=== PATIENT | male | born 1970 | race Caucasian/White ===

== ENCOUNTER 2021-12-06 12:37 | Emergency (ER) | payer SELFPAY ==
[~2021-12-06] VITALS: Ht 182.9 cm; Wt 58.9 kg
[2021-12-06] MEDS ORDERED: ACE65ERTAB PO (12:44)
[2021-12-06] MEDS ORDERED: IBUP200C25 PO (12:44)
[2021-12-06] MEDS ORDERED: CLINDAMYCIN 150MG CAPSULE PO ONE (14:45)
[2021-12-06] MEDS ORDERED: CLEO300C2 PO (14:53)
[2021-12-06 15:15] VITALS: BP 192/110
== END 2021-12-06 15:19 | disposition home or self-care (01) ==
LOC: M ED 12:37
DX: K12.2 Cellulitis and abscess of mouth (principal); I10 Essential (primary) hypertension; F17.210 Nicotine dependence, cigarettes, uncomplicated

== ENCOUNTER 2021-12-19 13:10 | Emergency (ER) | payer SELFPAY ==
[~2021-12-19] VITALS: Ht 182.9 cm; Wt 58.4 kg
[~2021-12-19 13:10] MED LIST: ACE65ERTAB PO; CLEO300C2 PO; IBUP200C25 PO
[2021-12-19 17:20] LABS: HEMATOCRIT 45.5 % (42.0-52.0); HEMOGLOBIN 16.4 g/dl (13.5-17.5); MEAN CORPUSCULAR HEMOGLOBIN 37.9 pg (27.0-33.0); MEAN CORPUSCULAR VOLUME 105.1 fl (80.0-96.0); PLATELET COUNT, AUTOMATED 195 10^3/uL (150-450); RED BLOOD COUNT 4.33 10^6/uL (4.30-6.10); WHITE BLOOD COUNT 11.2 10^3/uL (4.0-10.0)
[2021-12-19 17:29] LABS: ALT/SGPT 54 U/L (12-78); BILIRUBIN,TOTAL 0.6 MG/DL (0.2-1.0); BLOOD UREA NITROGEN 3 MG/DL (7-18); C REACTIVE PROTEIN QUANTITATIV 2.02 MG/DL (0.00-0.30); CALCIUM LEVEL 9.2 MG/DL (8.5-10.1); CARBON DIOXIDE LEVEL 26 MEQ/L (21-32); CHLORIDE LEVEL 94 MEQ/L (98-107); CREATININE FOR GFR 0.29 MG/DL (0.70-1.30); GLOMERULAR FILTRATION RATE > 60.0 (>56); GLUCOSE, FASTING 82 MG/DL (70-100); LDH LACTATE DEHYDROGENASE 165 U/L (87-241); POTASSIUM SERUM 3.4 MEQ/L (3.5-5.1); SODIUM LEVEL 128 MEQ/L (136-145)
[2021-12-19] MEDS ORDERED: ISOVUE-370 76% 100ML VIAL As Ordered ONE (17:37)
[2021-12-19 17:52] LABS: ERYTHROCYTE SEDIMENTATION RATE 17 mm/hr (0-20)
[2021-12-19] MEDS ORDERED: NS 1,000 ML IV ONE (18:00)
[2021-12-19 19:32] VITALS: BP 151/96
== END 2021-12-19 19:39 | disposition home or self-care (01) ==
LOC: M ED 13:10
DX: R22.0 Localized swelling, mass and lump, head (principal); R00.0 Tachycardia, unspecified; H92.01 Otalgia, right ear; F17.210 Nicotine dependence, cigarettes, uncomplicated; Z80.9 Family history of malignant neoplasm, unspecified
CPT/HCPCS: 70491; 71046; 80053; 83615; 85027; 85652; 86140; 96360; 99284; Q9967

== ENCOUNTER → 2021-12-25 | Outpatient (REF) | payer SELFPAY | LOC: M LAB REF 17:24 | PROVIDERS: ATTEND Otolaryngology | DX: C02.1 Malignant neoplasm of border of tongue (principal) ==

== ENCOUNTER → 2022-01-02 | Outpatient (CLI) | payer SELFPAY ==
[~2022-01-02] MED LIST changes: +MAGICMW SSP; +OXYC1SOL3 PO
== END ==
LOC: M ONCR 10:15
PROVIDERS: ATTEND General Practice
DX: C02.1 Malignant neoplasm of border of tongue (principal); C77.0 Secondary and unspecified malignant neoplasm of lymph nodes of head, face and neck; F17.210 Nicotine dependence, cigarettes, uncomplicated; K08.9 Disorder of teeth and supporting structures, unspecified; Z59.7 Insufficient social insurance and welfare support; Z80.1 Family history of malignant neoplasm of trachea, bronchus and lung; Z80.8 Family history of malignant neoplasm of other organs or systems
CPT/HCPCS: 31575; G0463

== ENCOUNTER → 2022-01-09 | Outpatient (POV) | payer SELFPAY ==
[~2022-01-09] VITALS: Ht 182.9 cm; Wt 56.8 kg
[~2022-01-09] MED LIST changes: +FENT12DI12 TOP
[2022-01-09 08:25] VITALS: BP 140/93
== END ==
LOC: M IRPOV 08:14
PROVIDERS: ATTEND Radiology Diagnostic Radiology
DX: C02.9 Malignant neoplasm of tongue, unspecified (principal); F17.210 Nicotine dependence, cigarettes, uncomplicated; R63.4 Abnormal weight loss; Z72.89 Other problems related to lifestyle; Z79.1 Long term (current) use of non-steroidal anti-inflammatories (NSAID); Z79.891 Long term (current) use of opiate analgesic; Z79.899 Other long term (current) drug therapy

== ENCOUNTER → 2022-01-12 | Outpatient (CLI) | payer MEDICAID, SELFPAY ==
[~2022-01-12] VITALS: Ht 182.9 cm; Wt 54.7 kg
[2022-01-12 14:41] VITALS: BP 149/113
== END ==
LOC: M PAL 14:23
PROVIDERS: ATTEND Nurse Practitioner Adult Health
DX: C02.9 Malignant neoplasm of tongue, unspecified (principal); C77.0 Secondary and unspecified malignant neoplasm of lymph nodes of head, face and neck; R13.10 Dysphagia, unspecified; F17.210 Nicotine dependence, cigarettes, uncomplicated; G89.3 Neoplasm related pain (acute) (chronic); G47.00 Insomnia, unspecified; F32.A Depression, unspecified; F41.9 Anxiety disorder, unspecified; Z51.5 Encounter for palliative care; Z79.899 Other long term (current) drug therapy; Z80.1 Family history of malignant neoplasm of trachea, bronchus and lung; Z80.8 Family history of malignant neoplasm of other organs or systems; Z79.891 Long term (current) use of opiate analgesic; Z66 Do not resuscitate

== ENCOUNTER → 2022-01-21 | Outpatient (CLI) | payer MEDICAID, SELFPAY | LOC: M LABSMTC 11:38 | PROVIDERS: ATTEND Anesthesiology | DX: Z01.818 Encounter for other preprocedural examination (principal); Z11.52 Encounter for screening for COVID-19 ==

== ENCOUNTER → 2022-01-22 | Outpatient (CLI) | payer MEDICAID, SELFPAY ==
[~2022-01-22] MED LIST changes: +GLUCAGON INJ 1MG VIAL As Ordered ONE; +ISOVUE-300 61% 50ML VIAL As Ordered ONE; +LIDOCAINE 1% MDV 20ML VIAL As Ordered ONE; +MIDAZOLAM INJ 2MG/2ML VIAL (J2250 PER 1MG) As Ordered ONE; +NS 1,000 ML IV SCH; +NYST50SS PO; +ceFAZolin 2 GM/D5W 50 ML IV BAG (J0690 PER 500MG) As Ordered ONE; +ceFAZolin SOD 2 GM in IV 1 EA IV ONE; +diphenhydrAMINE 50MG/ML VIAL (J1200) As Ordered ONE; +fentaNYL 100 MCG/2 ML INJECTION As Ordered ONE
[2022-01-22 16:00] VITALS: BP 161/96
== END ==
LOC: M IRPRO 11:45
PROVIDERS: ATTEND Radiology Diagnostic Radiology
DX: C76.0 Malignant neoplasm of head, face and neck (principal); R13.10 Dysphagia, unspecified; Z79.891 Long term (current) use of opiate analgesic
CPT/HCPCS: 49440; 99152; 99153; C1729; C1769; C1887; C1894; J0690; J1200; J1610; J2250; J3010; Q9967

== ENCOUNTER → 2022-01-23 | Outpatient (CLI) | payer MEDICAID, SELFPAY ==
[~2022-01-23] MED LIST changes: -GLUCAGON INJ 1MG VIAL As Ordered ONE; -ISOVUE-300 61% 50ML VIAL As Ordered ONE; -LIDOCAINE 1% MDV 20ML VIAL As Ordered ONE; -MIDAZOLAM INJ 2MG/2ML VIAL (J2250 PER 1MG) As Ordered ONE; -NS 1,000 ML IV SCH; -ceFAZolin 2 GM/D5W 50 ML IV BAG (J0690 PER 500MG) As Ordered ONE; -ceFAZolin SOD 2 GM in IV 1 EA IV ONE; -diphenhydrAMINE 50MG/ML VIAL (J1200) As Ordered ONE; -fentaNYL 100 MCG/2 ML INJECTION As Ordered ONE
== END ==
LOC: M PAL 15:21
PROVIDERS: ATTEND Nurse Practitioner Adult Health
DX: C02.9 Malignant neoplasm of tongue, unspecified (principal); C77.0 Secondary and unspecified malignant neoplasm of lymph nodes of head, face and neck; G89.3 Neoplasm related pain (acute) (chronic); F32.89 Other specified depressive episodes; F41.9 Anxiety disorder, unspecified; G47.00 Insomnia, unspecified; F17.210 Nicotine dependence, cigarettes, uncomplicated; R63.4 Abnormal weight loss; R68.84 Jaw pain; M54.50 Low back pain, unspecified; K59.00 Constipation, unspecified; R13.10 Dysphagia, unspecified; Z51.5 Encounter for palliative care; Z79.891 Long term (current) use of opiate analgesic; Z66 Do not resuscitate; Z80.1 Family history of malignant neoplasm of trachea, bronchus and lung

== ENCOUNTER → 2022-02-04 | Outpatient (CLI) | payer MEDICAID ==
[~2022-02-04] MED LIST changes: +OMEP-173 PO; +POTA20EL PO
== END ==
LOC: M LABSMTC 10:34
PROVIDERS: ATTEND Anesthesiology
DX: Z01.818 Encounter for other preprocedural examination (principal); Z11.52 Encounter for screening for COVID-19

== ENCOUNTER 2022-02-09 13:34 | Day surgery (SDC) | payer MEDICAID, OTHER ==
[~2022-02-09] VITALS: Ht 182.9 cm; Wt 49.0 kg
[~2022-02-09 13:34] MED LIST changes: +AMPICILLIN SOD/SULBACTAM SOD 3 GM in D5W MINI-BAG PLUS 100 ML IV ONE; +dexameTHASONE 4 MG/ML 1ML VIAL (J1100 PER 1MG) IV ONE
[2022-02-09] MEDS ORDERED: CHLORHEXIDINE GLUCONATE 0.12 % 15ML UDC (PERIDEX ORAL RINSE) As Ordered ONE ×2 (13:36→16:21)
[2022-02-09] MEDS ORDERED: MEPIVACAINE HCL 3 % 1.7 ML DENTAL CARTRIDGE (CARBOCAINE) (J0670) As Ordered ONE ×2 (13:36→14:05)
[2022-02-09] MEDS ORDERED: LIDOCAINE 2% W/ EPINEPHRINE 1.7 ML DENTAL INJ As Ordered ONE (13:37)
[2022-02-09] MEDS ORDERED: propofoL 200 MG/20 ML VIAL As Ordered ONE (13:41)
[2022-02-09] MEDS ORDERED: MIDAZOLAM INJ 2MG/2ML VIAL (J2250 PER 1MG) As Ordered ONE ×2 (13:41→15:27)
[2022-02-09] MEDS ORDERED: fentaNYL 250 MCG/5 ML INJECTION As Ordered ONE (13:41)
[2022-02-09] MEDS ORDERED: ROCURONIUM BROMIDE 50 MG/5 ML VIAL As Ordered ONE (13:41)
[2022-02-09] MEDS ORDERED: LIDOCAINE 2% 100MG/5ML SDV (FOR ANES.) As Ordered ONE (13:41)
[2022-02-09] MEDS ORDERED: ONDANSETRON 4MG 2ML VIAL As Ordered ONE (13:41)
[2022-02-09] MEDS ORDERED: dexameTHASONE 4 MG/ML 1ML VIAL (J1100 PER 1MG) As Ordered ONE (13:42)
[2022-02-09] MEDS ORDERED: SEVOFLURANE INHAL SOLN 250 ML BTL As Ordered ONE (13:50)
[2022-02-09] MEDS ORDERED: LR 1,000 ML IV SCH ×2 (14:00→18:10)
[2022-02-09] MEDS ORDERED: HYDROMORPHONE HCL 0.5 MG/ 0.5 ML SYRINGE (J1170 PER 1) IV STA (14:18)
[2022-02-09] MEDS ORDERED: OXYMETAZOLINE 0.05% NASAL SPRAY (AFRIN) As Ordered ONE (14:46)
[2022-02-09] MEDS ORDERED: LIDOCAINE 2% JELLY 5ML TUBE As Ordered ONE (14:59)
[2022-02-09] MEDS ORDERED: KETAMINE HCL 200 MG/20 ML VIAL As Ordered ONE (15:25)
[2022-02-09] MEDS ORDERED: SUGAMMADEX SODIUM 500 MG/5 ML VIAL (BRIDION) As Ordered ONE (16:11)
[2022-02-09] MEDS ORDERED: ACETAMINOPHEN 1000MG 100ML IV BTL (OFIRMEV) (J0131 PER 10MG) As Ordered ONE (16:17)
[2022-02-09] MEDS ORDERED: ESMOLOL INJ 100MG/10ML VIAL As Ordered ONE (16:18)
[2022-02-09 16:19] LABS: BASO # 0.1 10^3/uL (0.0-0.2); BASO % 0.5 % (0.0-1.0); EOS % 0.1 % (0.0-3.0); HEMATOCRIT 25.4 % (42.0-52.0); HEMOGLOBIN 8.4 g/dl (13.5-17.5); LYMPH # 0.7 10^3/uL (1.5-5.0); LYMPH % 7.7 % (24.0-44.0); MEAN CORPUSCULAR HEMOGLOBIN 34.6 pg (27.0-33.0); MEAN CORPUSCULAR HGB CONC 33.1 g/dl (32.0-36.5); MEAN CORPUSCULAR VOLUME 104.5 fl (80.0-96.0); MONO % 10.2 % (2.0-8.0); NEUTROPHILS # 7.8 10^3/uL (1.5-8.5); NEUTROPHILS % 80.7 % (36.0-66.0); PLATELET COUNT, AUTOMATED 321 10^3/uL (150-450); RED BLOOD COUNT 2.43 10^6/uL (4.30-6.10); WHITE BLOOD COUNT 9.7 10^3/uL (4.0-10.0)
[2022-02-09] MEDS ORDERED: BUPIVACAINE LIPOSOME/PF 1.3% 20ML VIAL (13.3MG/ML)(EXPAREL) As Ordered ONE (16:24)
[2022-02-09] MEDS ORDERED: HYDROmorphone HCL 2MG/ML 1ML VIAL As Ordered ONE (16:44)
[2022-02-09] MEDS: THROMBIN SOLN 5,000 UNITS VIAL As Ordered ONE ×2 (17:30→17:45)
[2022-02-09] MEDS ORDERED: fentaNYL 100 MCG/2 ML INJECTION IV PRN (18:10)
[2022-02-09] MEDS ORDERED: HYDROMORPHONE HCL 0.5 MG/ 0.5 ML SYRINGE (J1170 PER 1) IV PRN (18:10)
[2022-02-09] MEDS ORDERED: ONDANSETRON 4MG 2ML VIAL IV PRN (18:10)
[2022-02-09] MEDS ORDERED: oxyCODONE 5MG TAB PO PRN (18:10)
[2022-02-09 20:30] VITALS: BP 110/64
== END 2022-02-09 20:59 | disposition home or self-care (01) ==
LOC: M SDC 13:34
PROVIDERS: ATTEND Dentist
DX: K02.9 Dental caries, unspecified (principal); C02.9 Malignant neoplasm of tongue, unspecified; J44.9 Chronic obstructive pulmonary disease, unspecified; F17.210 Nicotine dependence, cigarettes, uncomplicated; Z79.891 Long term (current) use of opiate analgesic
CPT/HCPCS: 85025; 88300; C9290; D7210; D7310; D9223; J0131; J0295; J0670; J1100; J1170; J2250; J2405; J3010

== ENCOUNTER → 2022-02-13 | Outpatient (POV) | payer MEDICAID, OTHER ==
[~2022-02-13] MED LIST changes: +AMOX250REC; -AMPICILLIN SOD/SULBACTAM SOD 3 GM in D5W MINI-BAG PLUS 100 ML IV ONE; +DEXA4TA PO; +FENT12DI8 TD; +FENT1DIS14 TD; +OMEP-173; +ONDA4TAB6 PO; +OXYC100C5 PO; +PERI12LIQ; +PROC10TA5 PO; -dexameTHASONE 4 MG/ML 1ML VIAL (J1100 PER 1MG) IV ONE
== END ==
LOC: M IRPOV 13:10
PROVIDERS: ATTEND Radiology Diagnostic Radiology
DX: Z01.89 Encounter for other specified special examinations (principal)

== ENCOUNTER → 2022-02-20 | Outpatient (CLI) | payer OTHER ==
[~2022-02-20] VITALS: Ht 165.1 cm; Wt 51.0 kg
[2022-02-20 15:30] VITALS: BP 135/93
== END ==
LOC: M PAL 15:15
PROVIDERS: ATTEND Nurse Practitioner Adult Health
DX: C02.9 Malignant neoplasm of tongue, unspecified (principal); F17.210 Nicotine dependence, cigarettes, uncomplicated; H92.03 Otalgia, bilateral; M54.50 Low back pain, unspecified; M54.2 Cervicalgia; R13.10 Dysphagia, unspecified; Z66 Do not resuscitate; Z80.1 Family history of malignant neoplasm of trachea, bronchus and lung; Z51.5 Encounter for palliative care; G89.3 Neoplasm related pain (acute) (chronic); Z79.891 Long term (current) use of opiate analgesic

== ENCOUNTER → 2022-03-08 | Outpatient (CLI) | payer OTHER ==
[~2022-03-08] MED LIST changes: +ONDA-84 PO
== END ==
LOC: M ONCR 13:05
PROVIDERS: ATTEND General Practice
DX: C02.9 Malignant neoplasm of tongue, unspecified (principal); C77.9 Secondary and unspecified malignant neoplasm of lymph node, unspecified; K06.8 Other specified disorders of gingiva and edentulous alveolar ridge

== ENCOUNTER 2022-03-13 10:51 | Emergency (ER) | payer OTHER ==
[~2022-03-13] VITALS: Ht 152.4 cm; Wt 45.5 kg
[2022-03-13 11:59] LABS: HEMATOCRIT 28.6 % (42.0-52.0); HEMOGLOBIN 9.3 g/dl (13.5-17.5); MEAN CORPUSCULAR HEMOGLOBIN 30.6 pg (27.0-33.0); MEAN CORPUSCULAR HGB CONC 32.5 g/dl (32.0-36.5); MEAN CORPUSCULAR VOLUME 94.1 fl (80.0-96.0); PLATELET COUNT, AUTOMATED 100 10^3/uL (150-450); RED BLOOD COUNT 3.04 10^6/uL (4.30-6.10); WHITE BLOOD COUNT 1.1 10^3/uL (4.0-10.0)
[2022-03-13 12:13] LABS: BILIRUBIN,DIRECT 0.2 MG/DL (<0.4)
[2022-03-13 12:14] LABS: ALBUMIN 2.5 G/DL (3.2-5.2); ALKALINE PHOSPHATASE 80 U/L (46-116); ALT/SGPT 20 U/L (7.0-40); AST/SGOT 18 U/L (<34); BILIRUBIN,TOTAL 0.6 MG/DL (0.3-1.2); BLOOD UREA NITROGEN 15 MG/DL (9-23); CALCIUM LEVEL 7.9 MG/DL (8.5-10.1); CARBON DIOXIDE LEVEL 29 MMOL/L (20-31); CHLORIDE LEVEL 101 MMOL/L (98-107); CREATININE FOR GFR 0.49 MG/DL (0.70-1.30); GLOMERULAR FILTRATION RATE > 60.0 (>56); GLUCOSE, FASTING 115 MG/DL (60-100); POTASSIUM SERUM 3.1 MMOL/L (3.5-5.1); SODIUM LEVEL 136 MMOL/L (136-145); TOTAL PROTEIN 5.3 G/DL (5.7-8.2)
[2022-03-13 12:58] LABS: BASOPHILS 1 % (0-1); LYMPHOCYTES 58 % (16-44); MONOCYTES 2 % (0-5); NEUTROPHILS 32 % (28-66)
[2022-03-13 12:59] LABS: HYPOCHROMASIA 3+; PLATELET ESTIMATE MARKED DECREASE (NORMAL)
[2022-03-13] MEDS ORDERED: METAL LOCK LOOP XX ONE ×2 (13:00→13:46)
[2022-03-13] MEDS ORDERED: NS 1,000 ML IV ONE (15:55)
[2022-03-13] MEDS ORDERED: ONDANSETRON 4MG 2ML VIAL IV ONE (15:55)
[2022-03-13] MEDS ORDERED: POTASSIUM CHL PWD 20 MEQ PACKET PEG ONE (15:55)
[2022-03-13] MEDS ORDERED: ONDA4TAB6 PO (16:00)
[2022-03-13 18:00] VITALS: BP 158/83
== END 2022-03-13 18:12 | disposition home or self-care (01) ==
LOC: EDBD 10:51 → M ED 10:51
DX: R11.2 Nausea with vomiting, unspecified (principal); T45.1X5A Adverse effect of antineoplastic and immunosuppressive drugs, initial encounter; D61.810 Antineoplastic chemotherapy induced pancytopenia; E87.6 Hypokalemia; C02.9 Malignant neoplasm of tongue, unspecified; Z93.1 Gastrostomy status; Z95.828 Presence of other vascular implants and grafts; Z80.1 Family history of malignant neoplasm of trachea, bronchus and lung; Z82.49 Family history of ischemic heart disease and other diseases of the circulatory system; Z79.899 Other long term (current) drug therapy
CPT/HCPCS: 74021; 80048; 80076; 85025; 96361; 96374; 99285; J2405

== ENCOUNTER → 2022-03-22 | Outpatient (CLI) | payer OTHER ==
[~2022-03-22] VITALS: Ht 182.9 cm; Wt 50.1 kg
[~2022-03-22] MED LIST changes: +LORA2CON5 PEG; +OXYC100C5 PEG
[2022-03-22 09:43] VITALS: BP 107/82
== END ==
LOC: M PAL 09:35
PROVIDERS: ATTEND Nurse Practitioner Adult Health
DX: C02.9 Malignant neoplasm of tongue, unspecified (principal); F17.210 Nicotine dependence, cigarettes, uncomplicated; G89.3 Neoplasm related pain (acute) (chronic); Z51.5 Encounter for palliative care; Z92.21 Personal history of antineoplastic chemotherapy; Z66 Do not resuscitate; Z80.1 Family history of malignant neoplasm of trachea, bronchus and lung; G47.00 Insomnia, unspecified; L89.159 Pressure ulcer of sacral region, unspecified stage; Z98.818 Other dental procedure status; Z79.891 Long term (current) use of opiate analgesic; Z79.899 Other long term (current) drug therapy

== ENCOUNTER → 2022-04-05 | Outpatient (CLI) | payer OTHER ==
[~2022-04-05] MED LIST changes: +NYST-38 PO; -NYST50SS PO
== END ==
LOC: M PAL 07:39
PROVIDERS: ATTEND Nurse Practitioner Family
DX: C02.9 Malignant neoplasm of tongue, unspecified (principal); G89.3 Neoplasm related pain (acute) (chronic); L89.159 Pressure ulcer of sacral region, unspecified stage; R11.2 Nausea with vomiting, unspecified; R64 Cachexia; Z51.5 Encounter for palliative care; Z66 Do not resuscitate; Z92.21 Personal history of antineoplastic chemotherapy; Z80.1 Family history of malignant neoplasm of trachea, bronchus and lung; Z79.891 Long term (current) use of opiate analgesic; Z79.899 Other long term (current) drug therapy; F17.210 Nicotine dependence, cigarettes, uncomplicated

== ENCOUNTER → 2022-04-10 | Outpatient (CLI) | payer OTHER | LOC: M ONCR 14:08 | PROVIDERS: ATTEND General Practice | DX: C02.0 Malignant neoplasm of dorsal surface of tongue (principal); F17.210 Nicotine dependence, cigarettes, uncomplicated; Z79.52 Long term (current) use of systemic steroids; Z79.891 Long term (current) use of opiate analgesic; Z79.899 Other long term (current) drug therapy; Z92.21 Personal history of antineoplastic chemotherapy ==

== ENCOUNTER → 2022-04-17 | Outpatient (CLI) | payer OTHER ==
[~2022-04-17] VITALS: Ht 177.8 cm; Wt 50.3 kg
[~2022-04-17] MED LIST changes: -OMEP-173
[2022-04-17 11:40] VITALS: BP 108/72
== END ==
LOC: M PAL 07:09
PROVIDERS: ATTEND Nurse Practitioner Adult Health
DX: C02.9 Malignant neoplasm of tongue, unspecified (principal); G89.3 Neoplasm related pain (acute) (chronic); R64 Cachexia; R11.2 Nausea with vomiting, unspecified; F32.A Depression, unspecified; F41.9 Anxiety disorder, unspecified; L89.159 Pressure ulcer of sacral region, unspecified stage; Z51.5 Encounter for palliative care; Z66 Do not resuscitate; Z92.21 Personal history of antineoplastic chemotherapy; F17.210 Nicotine dependence, cigarettes, uncomplicated; Z79.891 Long term (current) use of opiate analgesic; Z79.899 Other long term (current) drug therapy

== ENCOUNTER → 2022-04-23 | Outpatient (CLI) | payer OTHER ==
[~2022-04-23] MED LIST changes: +ISOVUE-370 76% 100ML VIAL As Ordered ONE
== END ==
LOC: M RAD 08:20
PROVIDERS: ATTEND General Practice
DX: C02.0 Malignant neoplasm of dorsal surface of tongue (principal)

== ENCOUNTER → 2022-05-08 | Outpatient (CLI) | payer OTHER ==
[~2022-05-08] VITALS: Ht 182.9 cm; Wt 53.8 kg
[~2022-05-08] MED LIST changes: -ISOVUE-370 76% 100ML VIAL As Ordered ONE; +LIDO15SO4 PO
[2022-05-08 14:05] VITALS: BP 128/79
== END ==
LOC: M PAL 11:28
PROVIDERS: ATTEND Nurse Practitioner Adult Health
DX: C02.9 Malignant neoplasm of tongue, unspecified (principal); G89.3 Neoplasm related pain (acute) (chronic); Z51.5 Encounter for palliative care; R64 Cachexia; F41.9 Anxiety disorder, unspecified; F32.A Depression, unspecified; Z66 Do not resuscitate; Z92.21 Personal history of antineoplastic chemotherapy; F17.210 Nicotine dependence, cigarettes, uncomplicated; Z79.891 Long term (current) use of opiate analgesic; Z79.899 Other long term (current) drug therapy; L89.151 Pressure ulcer of sacral region, stage 1; Z93.1 Gastrostomy status; R11.2 Nausea with vomiting, unspecified

== ENCOUNTER → 2022-05-08 | Outpatient (RCR) | payer OTHER ==
[~2022-05-08] MED LIST changes: -LIDO15SO4 PO
== END ==
LOC: M ONCR 04-18 14:07
PROVIDERS: ATTEND General Practice
DX: C02.0 Malignant neoplasm of dorsal surface of tongue (principal)

== ENCOUNTER → 2022-05-29 | Outpatient (CLI) | payer OTHER ==
[~2022-05-29] VITALS: Ht 182.9 cm; Wt 51.3 kg
[~2022-05-29] MED LIST changes: +LIDO15SO4 PO; +MUCI1LIQ3 PO
[2022-05-29 10:15] VITALS: BP 125/78
== END ==
LOC: M PAL 10:05
PROVIDERS: ATTEND Nurse Practitioner Adult Health
DX: C01 Malignant neoplasm of base of tongue (principal); Z51.5 Encounter for palliative care; Z92.21 Personal history of antineoplastic chemotherapy; Z92.3 Personal history of irradiation; F17.210 Nicotine dependence, cigarettes, uncomplicated; R11.2 Nausea with vomiting, unspecified; F32.A Depression, unspecified; F41.9 Anxiety disorder, unspecified; R64 Cachexia; Z79.891 Long term (current) use of opiate analgesic; Z79.899 Other long term (current) drug therapy

== ENCOUNTER → 2022-06-05 | Outpatient (RCR) | payer OTHER | LOC: M ONCR 05-09 11:28 | PROVIDERS: ATTEND General Practice | DX: C02.0 Malignant neoplasm of dorsal surface of tongue (principal) ==

== ENCOUNTER → 2022-06-19 | Outpatient (CLI) | payer OTHER ==
[~2022-06-19] VITALS: Ht 182.9 cm; Wt 47.3 kg
[2022-06-19 10:39] VITALS: BP 111/75
== END ==
LOC: M PAL 10:32
PROVIDERS: ATTEND Nurse Practitioner Adult Health
DX: C01 Malignant neoplasm of base of tongue (principal); F17.210 Nicotine dependence, cigarettes, uncomplicated; R11.2 Nausea with vomiting, unspecified; F32.A Depression, unspecified; F41.9 Anxiety disorder, unspecified; R64 Cachexia; Z92.21 Personal history of antineoplastic chemotherapy; Z51.5 Encounter for palliative care; Z92.3 Personal history of irradiation; Z79.891 Long term (current) use of opiate analgesic; Z79.899 Other long term (current) drug therapy; Z80.1 Family history of malignant neoplasm of trachea, bronchus and lung

== ENCOUNTER 2022-06-25 10:12 | Outpatient (RCR) | payer OTHER ==
[2022-07-04] MEDS ORDERED: NYST-38 PO (13:23)
== END 2022-07-06 ==
LOC: M ONCR 10:12
PROVIDERS: ATTEND General Practice
DX: C02.0 Malignant neoplasm of dorsal surface of tongue (principal)

== ENCOUNTER → 2022-07-04 | Outpatient (CLI) | payer OTHER ==
[~2022-07-04] VITALS: Ht 182.9 cm; Wt 50.2 kg
[2022-07-04 10:51] VITALS: BP 115/84
== END ==
LOC: M PAL 10:46
PROVIDERS: ATTEND Nurse Practitioner Adult Health
DX: C01 Malignant neoplasm of base of tongue (principal); F41.9 Anxiety disorder, unspecified; F17.210 Nicotine dependence, cigarettes, uncomplicated; G89.29 Other chronic pain; M54.50 Low back pain, unspecified; M54.2 Cervicalgia; R11.2 Nausea with vomiting, unspecified; R64 Cachexia; Z92.21 Personal history of antineoplastic chemotherapy; Z51.5 Encounter for palliative care; Z92.3 Personal history of irradiation; Z79.891 Long term (current) use of opiate analgesic; Z79.899 Other long term (current) drug therapy; Z80.1 Family history of malignant neoplasm of trachea, bronchus and lung

== ENCOUNTER → 2022-07-10 | Outpatient (CLI) | payer OTHER | LOC: M ONCR 10:28 | PROVIDERS: ATTEND General Practice | DX: K13.79 Other lesions of oral mucosa (principal); L98.9 Disorder of the skin and subcutaneous tissue, unspecified; R22.43 Localized swelling, mass and lump, lower limb, bilateral; R68.2 Dry mouth, unspecified ==

== ENCOUNTER → 2022-07-11 | Outpatient (CLI) | payer OTHER | LOC: M WHC 07:12 | PROVIDERS: ATTEND General Practice | DX: C02.0 Malignant neoplasm of dorsal surface of tongue (principal) ==

== ENCOUNTER → 2022-07-31 | Outpatient (CLI) | payer OTHER ==
[~2022-07-31] VITALS: Ht 182.9 cm; Wt 53.6 kg
[~2022-07-31] MED LIST changes: +LIDO15SO PO; -LIDO15SO4 PO
[2022-07-31 13:02] VITALS: BP 130/83
== END ==
LOC: M PAL 12:53
PROVIDERS: ATTEND Nurse Practitioner Adult Health
DX: C01 Malignant neoplasm of base of tongue (principal); Z51.5 Encounter for palliative care; G89.3 Neoplasm related pain (acute) (chronic); K59.00 Constipation, unspecified; R64 Cachexia; F17.210 Nicotine dependence, cigarettes, uncomplicated; Z92.21 Personal history of antineoplastic chemotherapy; Z92.3 Personal history of irradiation; Z79.891 Long term (current) use of opiate analgesic; Z79.899 Other long term (current) drug therapy; Z80.1 Family history of malignant neoplasm of trachea, bronchus and lung

== ENCOUNTER → 2022-08-23 | Outpatient (CLI) | payer OTHER ==
[~2022-08-23] MED LIST changes: +MAGN400T2 PO
== END ==
LOC: M ONCR 14:56
PROVIDERS: ATTEND General Practice
DX: C02.0 Malignant neoplasm of dorsal surface of tongue (principal); R22.0 Localized swelling, mass and lump, head; F17.210 Nicotine dependence, cigarettes, uncomplicated; Z72.89 Other problems related to lifestyle; Z79.891 Long term (current) use of opiate analgesic; Z79.899 Other long term (current) drug therapy; Z92.3 Personal history of irradiation

== ENCOUNTER → 2022-08-30 | Outpatient (CLI) | payer OTHER | LOC: M ONCR 12:44 | PROVIDERS: ATTEND General Practice | DX: I89.0 Lymphedema, not elsewhere classified (principal) ==

== ENCOUNTER → 2022-08-30 | Outpatient (CLI) | payer OTHER ==
[~2022-08-30] VITALS: Ht 182.9 cm; Wt 52.0 kg
[2022-08-30 12:49] VITALS: BP 142/94
== END ==
LOC: M PAL 13:01
PROVIDERS: ATTEND Nurse Practitioner Adult Health
DX: C02.9 Malignant neoplasm of tongue, unspecified (principal); Z92.21 Personal history of antineoplastic chemotherapy; Z92.3 Personal history of irradiation; Z51.5 Encounter for palliative care; Z93.1 Gastrostomy status; G89.3 Neoplasm related pain (acute) (chronic); R64 Cachexia; F41.8 Other specified anxiety disorders; K59.00 Constipation, unspecified; F17.210 Nicotine dependence, cigarettes, uncomplicated; I89.0 Lymphedema, not elsewhere classified; Z66 Do not resuscitate; Z80.1 Family history of malignant neoplasm of trachea, bronchus and lung; Z80.8 Family history of malignant neoplasm of other organs or systems

== ENCOUNTER → 2022-09-25 | Outpatient (CLI) | payer OTHER ==
[~2022-09-25] MED LIST changes: +AMIT50TA PO
== END ==
LOC: M ONCR 11:03
PROVIDERS: ATTEND General Practice
DX: C02.0 Malignant neoplasm of dorsal surface of tongue (principal); D38.1 Neoplasm of uncertain behavior of trachea, bronchus and lung; F17.210 Nicotine dependence, cigarettes, uncomplicated; Z71.2 Person consulting for explanation of examination or test findings; Z72.89 Other problems related to lifestyle; Z79.891 Long term (current) use of opiate analgesic; Z79.899 Other long term (current) drug therapy; Z92.21 Personal history of antineoplastic chemotherapy; Z92.3 Personal history of irradiation; Z93.1 Gastrostomy status
CPT/HCPCS: 31575; G0463

== ENCOUNTER → 2022-10-15 | Outpatient (CLI) | payer OTHER ==
[2022-10-16 16:38] LABS: INR 0.91; PROTHROMBIN TIME 12.5 SECONDS (12.5-14.5)
== END ==
LOC: M ONCR 09:58
PROVIDERS: ATTEND General Practice
DX: C02.0 Malignant neoplasm of dorsal surface of tongue (principal); L98.8 Other specified disorders of the skin and subcutaneous tissue

== ENCOUNTER 2022-10-19 12:41 | Inpatient (IN) | payer OTHER ==
[~2022-10-19] VITALS: Ht 182.9 cm; Wt 55.3 kg
[2022-10-19] VITALS (10 sets, daily range): BP systolic 102–155; BP diastolic 70–87; TEMP 97.1–98; O2SAT 96–100
[~2022-10-19 12:41] MED LIST changes: -HOME MED LIST COMPLETE! XX SCH; -LIDOCAINE 1% MDV 20ML VIAL As Ordered ONE; -MIDAZOLAM INJ 2MG/2ML VIAL As Ordered ONE; -NYST-38 SS; -[UNRECOGNIZED DRUG - CODE] PO; -fentaNYL 100 MCG/2 ML INJECTION As Ordered ONE; -flumazeniL 0.5MG/5ML VIAL As Ordered ONE; -oxyCODONE 5MG TAB As Ordered ONE; -oxyCODONE 5MG TAB PO ONE
[2022-10-19] MEDS ORDERED: ACETAMINOPHEN TAB 650MG DOSE (2X325MG) PO PRN (12:45)
[2022-10-19] MEDS ORDERED: PERCOCET 5MG/325MG TAB PO PRN ×2 (12:55)
[2022-10-19] MEDS ORDERED: MOM 30ML SUSPENSION UDC PO PRN (14:00)
[2022-10-19 15:17] LABS: HEMATOCRIT 33.7 % (42.0-52.0); HEMOGLOBIN 11.1 g/dl (13.5-17.5); MEAN CORPUSCULAR HEMOGLOBIN 32.5 pg (27.0-33.0); MEAN CORPUSCULAR HGB CONC 32.9 g/dl (32.0-36.5); MEAN CORPUSCULAR VOLUME 98.5 fl (80.0-96.0); PLATELET COUNT, AUTOMATED 256 10^3/uL (150-450); RED BLOOD COUNT 3.42 10^6/uL (4.30-6.10); WHITE BLOOD COUNT 8.9 10^3/uL (4.0-10.0)
[2022-10-19 15:32] LABS: PROTHROMBIN TIME 13.4 SECONDS (12.5-14.5)
[2022-10-19 15:33] LABS: PARTIAL THROMBOPLASTIN TIME 29.7 SECONDS (24.8-34.2)
[2022-10-19 15:42] LABS: ALBUMIN 3.5 G/DL (3.2-5.2); ALKALINE PHOSPHATASE 83 U/L (46-116); ALT/SGPT < 9 U/L (7.0-40); AST/SGOT < 8 U/L (<34); BILIRUBIN,TOTAL 0.3 MG/DL (0.3-1.2); BLOOD UREA NITROGEN 20 MG/DL (9-23); CALCIUM LEVEL 9.3 MG/DL (8.5-10.1); CARBON DIOXIDE LEVEL 31 MMOL/L (20-31); CHLORIDE LEVEL 107 MMOL/L (98-107); CREATININE FOR GFR 0.66 MG/DL (0.70-1.30); GLOMERULAR FILTRATION RATE > 60.0 (>56); GLUCOSE, FASTING 94 MG/DL (60-100); SODIUM LEVEL 142 MMOL/L (136-145); TOTAL PROTEIN 6.3 G/DL (5.7-8.2)
[2022-10-19] MEDS ORDERED: LORA2CON5 PEG (15:42)
[2022-10-19] MEDS ORDERED: FENT1DIS14 TD (15:42)
[2022-10-19] MEDS ORDERED: AMIT50TA PO (15:42)
[2022-10-19] MEDS ORDERED: NYST-38 SS (15:53)
[2022-10-19] MEDS ORDERED: PROC10TA5 PO (15:53)
[2022-10-19] MEDS ORDERED: [UNRECOGNIZED DRUG - CODE] PO (15:53)
[2022-10-19] MEDS ORDERED: HOME MED LIST COMPLETE! XX SCH (16:00)
[2022-10-19] MEDS ORDERED: PROCHLORPERAZINE 5MG TAB PO PRN (17:10)
[2022-10-19] MEDS ORDERED: ONDANSETRON 4MG ORAL DISINTEGRATING TAB PO PRN (17:10)
[2022-10-19] MEDS ORDERED: LORazepam 0.5 MG TAB PEG PRN (17:20)
[2022-10-19] MEDS ORDERED: FENTANYL REMOVAL DOCUMENTATION MISC XX SCH (17:20)
[2022-10-19] MEDS: KETOROLAC 30 MG/ML 1ML VIAL IV SCH ×2 (17:32→22:47)
[2022-10-19] MEDS: SODIUM CHLORIDE 0.9% INJ 10 ML SYR IV PRN ×2 (17:33→22:53)
[2022-10-19] MEDS ORDERED: SENNA 8.6 MG TAB (SENOKOT) PO SCH (21:00)
[2022-10-19] MEDS ORDERED: AMITRIPTYLINE 50 MG TAB PO SCH (21:00)
[2022-10-19] MEDS ORDERED: DOCUSATE SODIUM 100MG CAPSULE PO SCH (21:00)
[2022-10-19] MEDS ORDERED: DOCUSATE SOD LIQ 100MG/10ML UDC PO ONE (21:10)
[2022-10-19] MEDS: NYSTATIN 500,000U/5ML SUSP UDC SS SCH (21:50)
[2022-10-19] MEDS: oxyCODONE 5MG TAB PEG PRN (21:50)
[2022-10-20] VITALS (14 sets, daily range): BP systolic 116–135; BP diastolic 68–84; TEMP 97–98.5; O2SAT 95–99
[2022-10-20] MEDS: oxyCODONE 5MG TAB PEG PRN ×5 (05:11→21:52)
[2022-10-20] MEDS: KETOROLAC 30 MG/ML 1ML VIAL IV SCH ×4 (05:11→22:22)
[2022-10-20 06:04] LABS: HEMATOCRIT 32.1 % (42.0-52.0); HEMOGLOBIN 10.4 g/dl (13.5-17.5); MEAN CORPUSCULAR HEMOGLOBIN 32.4 pg (27.0-33.0); MEAN CORPUSCULAR HGB CONC 32.4 g/dl (32.0-36.5); PLATELET COUNT, AUTOMATED 241 10^3/uL (150-450); RED BLOOD COUNT 3.21 10^6/uL (4.30-6.10)
[2022-10-20 06:55] LABS: ALBUMIN 3.1 G/DL (3.2-5.2); ALKALINE PHOSPHATASE 77 U/L (46-116); ALT/SGPT < 9 U/L (7.0-40); AST/SGOT 13 U/L (<34); BILIRUBIN,TOTAL 0.3 MG/DL (0.3-1.2); BLOOD UREA NITROGEN 19 MG/DL (9-23); CALCIUM LEVEL 8.9 MG/DL (8.5-10.1); CARBON DIOXIDE LEVEL 27 MMOL/L (20-31); CHLORIDE LEVEL 106 MMOL/L (98-107); CREATININE FOR GFR 0.67 MG/DL (0.70-1.30); GLOMERULAR FILTRATION RATE > 60.0 (>56); GLUCOSE, FASTING 94 MG/DL (60-100); POTASSIUM SERUM 4.2 MMOL/L (3.5-5.1); SODIUM LEVEL 142 MMOL/L (136-145); TOTAL PROTEIN 5.5 G/DL (5.7-8.2)
[2022-10-20] MEDS: PANTOPRAZOLE 40MG VIAL IV SCH (08:36)
[2022-10-20] MEDS: NYSTATIN 500,000U/5ML SUSP UDC SS SCH ×4 (08:36→21:52)
[2022-10-20] MEDS: ENOXAPARIN 40MG/0.4ML SYRINGE (J1650 PER 10MG) SC SCH (08:37)
[2022-10-20] MEDS: SODIUM CHLORIDE 0.9% INJ 10 ML SYR IV SCH (08:38)
[2022-10-20] MEDS ORDERED: oxyCODONE 5MG TAB PO PRN (08:50)
[2022-10-20] MEDS ORDERED: ONDANSETRON 4MG ORAL DISINTEGRATING TAB PEG PRN (08:50)
[2022-10-20] MEDS ORDERED: DOCUSATE SOD LIQ 100MG/10ML UDC PO SCH (09:00)
[2022-10-20] MEDS ORDERED: PROCHLORPERAZINE 5MG TAB PEG PRN (11:10)
[2022-10-20] MEDS: DOCUSATE SOD LIQ 100MG/10ML UDC PEG SCH ×2 (11:41→21:52)
[2022-10-20] MEDS ORDERED: ACETAMINOPHEN TAB 650MG DOSE (2X325MG) PEG PRN (12:45)
[2022-10-20] MEDS: SODIUM CHLORIDE 0.9% INJ 10 ML SYR IV PRN ×2 (17:46→22:26)
[2022-10-20] MEDS: SENNA 8.6 MG TAB (SENOKOT) PEG SCH (21:50)
[2022-10-20] MEDS: AMITRIPTYLINE 50 MG TAB PEG SCH (21:52)
[2022-10-21 03:58] VITALS: BP 127/82; TEMP 97.4; O2SAT 99
[2022-10-21] MEDS: oxyCODONE 5MG TAB PEG PRN ×5 (04:05→21:04)
[2022-10-21 05:44] LABS: HEMOGLOBIN 9.6 g/dl (13.5-17.5); MEAN CORPUSCULAR HEMOGLOBIN 32.7 pg (27.0-33.0); MEAN CORPUSCULAR HGB CONC 33.1 g/dl (32.0-36.5); MEAN CORPUSCULAR VOLUME 98.6 fl (80.0-96.0); PLATELET COUNT, AUTOMATED 220 10^3/uL (150-450); RED BLOOD COUNT 2.94 10^6/uL (4.30-6.10); WHITE BLOOD COUNT 5.5 10^3/uL (4.0-10.0)
[2022-10-21] MEDS: KETOROLAC 30 MG/ML 1ML VIAL IV SCH ×4 (05:49→23:18)
[2022-10-21 06:10] LABS: ALBUMIN 2.7 G/DL (3.2-5.2); ALKALINE PHOSPHATASE 71 U/L (46-116); ALT/SGPT < 9 U/L (7.0-40); AST/SGOT < 8 U/L (<34); BILIRUBIN,TOTAL < 0.2 MG/DL (0.3-1.2); BLOOD UREA NITROGEN 19 MG/DL (9-23); CALCIUM LEVEL 8.7 MG/DL (8.5-10.1); CARBON DIOXIDE LEVEL 30 MMOL/L (20-31); CHLORIDE LEVEL 105 MMOL/L (98-107); GLOMERULAR FILTRATION RATE > 60.0 (>56); GLUCOSE, FASTING 86 MG/DL (60-100); POTASSIUM SERUM 4.3 MMOL/L (3.5-5.1); SODIUM LEVEL 139 MMOL/L (136-145); TOTAL PROTEIN 5.2 G/DL (5.7-8.2)
[2022-10-21 08:21] VITALS: BP 129/78; TEMP 97.4; O2SAT 97
[2022-10-21] MEDS: PANTOPRAZOLE 40MG VIAL IV SCH (08:27)
[2022-10-21] MEDS: NYSTATIN 500,000U/5ML SUSP UDC SS SCH ×4 (08:28→21:03)
[2022-10-21] MEDS: ENOXAPARIN 40MG/0.4ML SYRINGE (J1650 PER 10MG) SC SCH (08:29)
[2022-10-21] MEDS: SODIUM CHLORIDE 0.9% INJ 10 ML SYR IV SCH (08:30)
[2022-10-21] MEDS: DOCUSATE SOD LIQ 100MG/10ML UDC PEG SCH ×2 (08:30→21:03)
[2022-10-21] MEDS: MOM 30ML SUSPENSION UDC PEG PRN (12:11)
[2022-10-21 12:22] VITALS: BP 125/84; TEMP 98.3; O2SAT 94
[2022-10-21 15:24] VITALS: BP 121/78; TEMP 97.6; O2SAT 92
[2022-10-21] MEDS: fentaNYL 25 MCG/HR PATCH TD SCH (16:33)
[2022-10-21 19:29] VITALS: BP 126/79; TEMP 98.1; O2SAT 96
[2022-10-21] MEDS: SENNA 8.6 MG TAB (SENOKOT) PEG SCH (21:04)
[2022-10-21] MEDS: AMITRIPTYLINE 50 MG TAB PEG SCH (21:04)
[2022-10-21 23:15] VITALS: BP 137/79; TEMP 98.9; O2SAT 93
[2022-10-22] VITALS (15 sets, daily range): BP systolic 108–135; BP diastolic 64–78; TEMP 96.6–98.3; O2SAT 94–100
[2022-10-22] MEDS: oxyCODONE 5MG TAB PEG PRN ×6 (02:01→20:36)
[2022-10-22] MEDS: KETOROLAC 30 MG/ML 1ML VIAL IV SCH ×4 (04:31→23:14)
[2022-10-22 06:47] LABS: HEMATOCRIT 30.5 % (42.0-52.0); MEAN CORPUSCULAR HEMOGLOBIN 32.6 pg (27.0-33.0); MEAN CORPUSCULAR HGB CONC 32.8 g/dl (32.0-36.5); MEAN CORPUSCULAR VOLUME 99.3 fl (80.0-96.0); PLATELET COUNT, AUTOMATED 217 10^3/uL (150-450); RED BLOOD COUNT 3.07 10^6/uL (4.30-6.10); WHITE BLOOD COUNT 7.7 10^3/uL (4.0-10.0)
[2022-10-22 07:13] LABS: ALBUMIN 2.8 G/DL (3.2-5.2); ALKALINE PHOSPHATASE 73 U/L (46-116); ALT/SGPT < 9 U/L (7.0-40); AST/SGOT < 8 U/L (<34); BILIRUBIN,TOTAL 0.3 MG/DL (0.3-1.2); BLOOD UREA NITROGEN 20 MG/DL (9-23); CALCIUM LEVEL 8.9 MG/DL (8.5-10.1); CARBON DIOXIDE LEVEL 29 MMOL/L (20-31); CHLORIDE LEVEL 103 MMOL/L (98-107); CREATININE FOR GFR 0.78 MG/DL (0.70-1.30); GLOMERULAR FILTRATION RATE > 60.0 (>56); GLUCOSE, FASTING 89 MG/DL (60-100); POTASSIUM SERUM 4.5 MMOL/L (3.5-5.1); SODIUM LEVEL 139 MMOL/L (136-145); TOTAL PROTEIN 5.2 G/DL (5.7-8.2)
[2022-10-22] MEDS: DOCUSATE SOD LIQ 100MG/10ML UDC PEG SCH ×2 (09:53→20:35)
[2022-10-22] MEDS: NYSTATIN 500,000U/5ML SUSP UDC SS SCH ×4 (09:53→20:35)
[2022-10-22] MEDS: PANTOPRAZOLE 40MG VIAL IV SCH (09:54)
[2022-10-22] MEDS: ENOXAPARIN 40MG/0.4ML SYRINGE (J1650 PER 10MG) SC SCH (09:54)
[2022-10-22] MEDS: SODIUM CHLORIDE 0.9% INJ 10 ML SYR IV SCH (09:54)
[2022-10-22] MEDS ORDERED: MIDAZOLAM INJ 2MG/2ML VIAL As Ordered ONE (11:00)
[2022-10-22] MEDS ORDERED: MIDAZOLAM INJ 2MG/2ML VIAL IV ONE ×2 (11:00)
[2022-10-22] MEDS ORDERED: LIDOCAINE 1% MDV 20ML VIAL SC ONE (11:00)
[2022-10-22] MEDS ORDERED: LIDOCAINE 1% MDV 20ML VIAL As Ordered ONE (11:01)
[2022-10-22] MEDS ORDERED: flumazeniL 0.5MG/5ML VIAL As Ordered ONE (11:01)
[2022-10-22] MEDS: AMITRIPTYLINE 50 MG TAB PEG SCH (20:35)
[2022-10-22] MEDS: SENNA 8.6 MG TAB (SENOKOT) PEG SCH (20:35)
[2022-10-23] MEDS: oxyCODONE 5MG TAB PEG PRN ×6 (02:37→23:35)
[2022-10-23 03:21] VITALS: BP 109/59; TEMP 97.3; O2SAT 97
[2022-10-23] MEDS: KETOROLAC 30 MG/ML 1ML VIAL IV SCH ×4 (04:48→22:27)
[2022-10-23 06:23] LABS: HEMATOCRIT 33.7 % (42.0-52.0); MEAN CORPUSCULAR HEMOGLOBIN 32.6 pg (27.0-33.0); MEAN CORPUSCULAR HGB CONC 32.6 g/dl (32.0-36.5); PLATELET COUNT, AUTOMATED 220 10^3/uL (150-450); RED BLOOD COUNT 3.37 10^6/uL (4.30-6.10)
[2022-10-23 06:51] LABS: ALBUMIN 3.2 G/DL (3.2-5.2); ALKALINE PHOSPHATASE 84 U/L (46-116); ALT/SGPT < 9 U/L (7.0-40); AST/SGOT < 8 U/L (<34); BILIRUBIN,TOTAL 0.3 MG/DL (0.3-1.2); BLOOD UREA NITROGEN 18 MG/DL (9-23); CALCIUM LEVEL 9.4 MG/DL (8.5-10.1); CARBON DIOXIDE LEVEL 30 MMOL/L (20-31); CHLORIDE LEVEL 102 MMOL/L (98-107); CREATININE FOR GFR 0.81 MG/DL (0.70-1.30); GLOMERULAR FILTRATION RATE > 60.0 (>56); GLUCOSE, FASTING 87 MG/DL (60-100); POTASSIUM SERUM 4.4 MMOL/L (3.5-5.1); SODIUM LEVEL 137 MMOL/L (136-145); TOTAL PROTEIN 6.2 G/DL (5.7-8.2)
[2022-10-23 07:40] VITALS: BP 112/73; TEMP 97; O2SAT 98
[2022-10-23] MEDS: NYSTATIN 500,000U/5ML SUSP UDC SS SCH ×4 (07:48→19:33)
[2022-10-23] MEDS: PANTOPRAZOLE 40MG VIAL IV SCH (07:48)
[2022-10-23] MEDS: SODIUM CHLORIDE 0.9% INJ 10 ML SYR IV SCH (07:49)
[2022-10-23] MEDS: ENOXAPARIN 40MG/0.4ML SYRINGE (J1650 PER 10MG) SC SCH (07:49)
[2022-10-23] MEDS: DOCUSATE SOD LIQ 100MG/10ML UDC PEG SCH ×2 (09:00→19:33)
[2022-10-23 11:38] VITALS: BP 106/60; TEMP 97.1; O2SAT 97
[2022-10-23 15:47] VITALS: BP 111/64; TEMP 98; O2SAT 100
[2022-10-23] MEDS: SENNA 8.6 MG TAB (SENOKOT) PEG SCH (19:34)
[2022-10-23] MEDS: AMITRIPTYLINE 50 MG TAB PEG SCH (19:34)
[2022-10-23 19:35] VITALS: BP 102/63; TEMP 98.4; O2SAT 96
[2022-10-23 23:40] VITALS: BP 134/75; TEMP 98.5; O2SAT 94
[2022-10-24] MEDS: oxyCODONE 5MG TAB PEG PRN ×5 (03:56→21:45)
[2022-10-24 03:58] VITALS: BP 128/78; TEMP 97.2; O2SAT 97
[2022-10-24] MEDS: KETOROLAC 30 MG/ML 1ML VIAL IV SCH ×2 (05:13→10:59)
[2022-10-24 07:53] VITALS: BP 122/59; TEMP 97.4; O2SAT 97
[2022-10-24] MEDS: ENOXAPARIN 40MG/0.4ML SYRINGE (J1650 PER 10MG) SC SCH (08:51)
[2022-10-24] MEDS: DOCUSATE SOD LIQ 100MG/10ML UDC PEG SCH ×2 (08:51→21:00)
[2022-10-24] MEDS: NYSTATIN 500,000U/5ML SUSP UDC SS SCH ×4 (08:51→21:00)
[2022-10-24] MEDS: PANTOPRAZOLE 40MG VIAL IV SCH (08:53)
[2022-10-24] MEDS: SODIUM CHLORIDE 0.9% INJ 10 ML SYR IV SCH (08:53)
[2022-10-24 11:56] VITALS: BP 146/82; TEMP 97.6; O2SAT 98
[2022-10-24] MEDS ORDERED: FENTANYL REMOVAL DOCUMENTATION MISC XX SCH (14:59)
[2022-10-24 15:44] VITALS: BP 123/58; TEMP 97.8; O2SAT 97
[2022-10-24] MEDS: fentaNYL 25 MCG/HR PATCH TD SCH (15:44)
[2022-10-24] MEDS: MAGIC MOUTHWASH SUSPENSION BTL SSP SCH (17:30)
[2022-10-24 19:39] VITALS: BP 142/88; TEMP 98.1; O2SAT 100
[2022-10-24] MEDS: SENNA 8.6 MG TAB (SENOKOT) PEG SCH (21:00)
[2022-10-24] MEDS: CHLORHEXIDINE GLUCONATE 0.12 % 15ML UDC (PERIDEX ORAL RINSE) MT SCH (21:27)
[2022-10-24] MEDS: AMITRIPTYLINE 50 MG TAB PEG SCH (21:44)
[2022-10-24] MEDS ORDERED: MORPHINE 2 MG/ML 1ML VIAL IV ONE (22:00)
[2022-10-25] VITALS (7 sets, daily range): BP systolic 124–148; BP diastolic 66–90; TEMP 97.4–98.6; O2SAT 95–98
[2022-10-25] MEDS: oxyCODONE 5MG TAB PEG PRN ×2 (01:47→05:52)
[2022-10-25 05:38] LABS: BASO % 0.4 % (0.0-1.0); HEMATOCRIT 30.1 % (42.0-52.0); HEMOGLOBIN 9.9 g/dl (13.5-17.5); LYMPH # 0.6 10^3/uL (1.5-5.0); LYMPH % 11.1 % (24.0-44.0); MEAN CORPUSCULAR HEMOGLOBIN 32.1 pg (27.0-33.0); MEAN CORPUSCULAR HGB CONC 32.9 g/dl (32.0-36.5); MEAN CORPUSCULAR VOLUME 97.7 fl (80.0-96.0); MONO # 0.6 10^3/uL (0.0-0.8); MONO % 12.9 % (2.0-8.0); NEUTROPHILS # 3.7 10^3/uL (1.5-8.5); NEUTROPHILS % 75.4 % (36.0-66.0); PLATELET COUNT, AUTOMATED 209 10^3/uL (150-450); RED BLOOD COUNT 3.08 10^6/uL (4.30-6.10)
[2022-10-25 06:00] LABS: BLOOD UREA NITROGEN 15 MG/DL (9-23); CALCIUM LEVEL 9.1 MG/DL (8.5-10.1); CARBON DIOXIDE LEVEL 30 MMOL/L (20-31); CHLORIDE LEVEL 104 MMOL/L (98-107); CREATININE FOR GFR 0.74 MG/DL (0.70-1.30); GLOMERULAR FILTRATION RATE > 60.0 (>56); GLUCOSE, FASTING 89 MG/DL (60-100); POTASSIUM SERUM 4.2 MMOL/L (3.5-5.1); SODIUM LEVEL 140 MMOL/L (136-145)
[2022-10-25] MEDS ORDERED: ISOVUE-370 76% 100ML VIAL As Ordered ONE (07:40)
[2022-10-25] MEDS: NYSTATIN 500,000U/5ML SUSP UDC SS SCH ×4 (08:47→21:43)
[2022-10-25] MEDS: PANTOPRAZOLE 40MG VIAL IV SCH (08:48)
[2022-10-25] MEDS: SODIUM CHLORIDE 0.9% INJ 10 ML SYR IV SCH (08:48)
[2022-10-25] MEDS: MAGIC MOUTHWASH SUSPENSION BTL SSP SCH ×3 (08:48→17:21)
[2022-10-25] MEDS: CHLORHEXIDINE GLUCONATE 0.12 % 15ML UDC (PERIDEX ORAL RINSE) MT SCH ×3 (08:48→21:43)
[2022-10-25] MEDS: ENOXAPARIN 40MG/0.4ML SYRINGE (J1650 PER 10MG) SC SCH (08:50)
[2022-10-25] MEDS: DOCUSATE SOD LIQ 100MG/10ML UDC PEG SCH ×2 (08:50→21:00)
[2022-10-25] MEDS ORDERED: FENTANYL REMOVAL DOCUMENTATION MISC XX ONE (08:59)
[2022-10-25] MEDS: oxyCODONE 5MG TAB PO SCH ×4 (10:44→21:43)
[2022-10-25] MEDS: fentaNYL 50 MCG/HR PATCH TD SCH (10:46)
[2022-10-25] MEDS: MORPHINE 10MG/0.5ML ORAL CONCENTRATE SOLUTION U/D SL PRN ×5 (12:44→22:53)
[2022-10-25] MEDS: SENNA 8.6 MG TAB (SENOKOT) PEG SCH (21:00)
[2022-10-25] MEDS: AMITRIPTYLINE 50 MG TAB PEG SCH (21:43)
[2022-10-26] MEDS: MORPHINE 10MG/0.5ML ORAL CONCENTRATE SOLUTION U/D SL PRN ×9 (01:08→22:40)
[2022-10-26] MEDS: oxyCODONE 5MG TAB PO SCH ×5 (02:13→19:17)
[2022-10-26 03:52] VITALS: BP 115/70; TEMP 97.3; O2SAT 98
[2022-10-26 05:23] LABS: BASO % 0.2 % (0.0-1.0); HEMATOCRIT 30.8 % (42.0-52.0); HEMOGLOBIN 9.8 g/dl (13.5-17.5); LYMPH # 0.6 10^3/uL (1.5-5.0); LYMPH % 14.5 % (24.0-44.0); MEAN CORPUSCULAR HEMOGLOBIN 31.7 pg (27.0-33.0); MEAN CORPUSCULAR HGB CONC 31.8 g/dl (32.0-36.5); MEAN CORPUSCULAR VOLUME 99.7 fl (80.0-96.0); MONO # 0.7 10^3/uL (0.0-0.8); MONO % 14.8 % (2.0-8.0); NEUTROPHILS # 3.1 10^3/uL (1.5-8.5); PLATELET COUNT, AUTOMATED 217 10^3/uL (150-450); RED BLOOD COUNT 3.09 10^6/uL (4.30-6.10); WHITE BLOOD COUNT 4.4 10^3/uL (4.0-10.0)
[2022-10-26 05:42] LABS: BLOOD UREA NITROGEN 11 MG/DL (9-23); CALCIUM LEVEL 9.3 MG/DL (8.5-10.1); CARBON DIOXIDE LEVEL 32 MMOL/L (20-31); CHLORIDE LEVEL 104 MMOL/L (98-107); CREATININE FOR GFR 0.76 MG/DL (0.70-1.30); GLOMERULAR FILTRATION RATE > 60.0 (>56); GLUCOSE, FASTING 92 MG/DL (60-100); POTASSIUM SERUM 4.1 MMOL/L (3.5-5.1); SODIUM LEVEL 141 MMOL/L (136-145)
[2022-10-26] MEDS: MAGIC MOUTHWASH SUSPENSION BTL SSP SCH ×3 (07:33→18:06)
[2022-10-26 07:53] VITALS: BP 126/77; TEMP 96.9; O2SAT 98
[2022-10-26] MEDS: DOCUSATE SOD LIQ 100MG/10ML UDC PEG SCH ×2 (08:38→20:37)
[2022-10-26] MEDS: CHLORHEXIDINE GLUCONATE 0.12 % 15ML UDC (PERIDEX ORAL RINSE) MT SCH ×3 (09:04→20:37)
[2022-10-26] MEDS: NYSTATIN 500,000U/5ML SUSP UDC SS SCH ×4 (09:04→20:37)
[2022-10-26] MEDS: PANTOPRAZOLE 40MG VIAL IV SCH (09:04)
[2022-10-26] MEDS: SODIUM CHLORIDE 0.9% INJ 10 ML SYR IV SCH (09:05)
[2022-10-26] MEDS: ENOXAPARIN 40MG/0.4ML SYRINGE (J1650 PER 10MG) SC SCH (09:06)
[2022-10-26 11:38] VITALS: BP 132/98; TEMP 97.6; O2SAT 98
[2022-10-26 16:20] VITALS: BP 129/77; TEMP 98.3; O2SAT 95
[2022-10-26] MEDS: MOM 30ML SUSPENSION UDC PEG PRN (18:06)
[2022-10-26 20:00] VITALS: BP 136/90; TEMP 98.2; O2SAT 95
[2022-10-26] MEDS: SENNA 8.6 MG TAB (SENOKOT) PEG SCH (20:37)
[2022-10-26] MEDS: AMITRIPTYLINE 50 MG TAB PEG SCH (20:37)
[2022-10-27] VITALS: BP 133/74; TEMP 99; O2SAT 92
[2022-10-27] MEDS: oxyCODONE 5MG TAB PO SCH ×7 (00:10→21:16)
[2022-10-27] MEDS: MORPHINE 10MG/0.5ML ORAL CONCENTRATE SOLUTION U/D SL PRN ×6 (01:55→23:32)
[2022-10-27 04:00] VITALS: BP 106/69; TEMP 98; O2SAT 88
[2022-10-27 06:40] LABS: BASO % 0.2 % (0.0-1.0); HEMATOCRIT 30.1 % (42.0-52.0); HEMOGLOBIN 10.1 g/dl (13.5-17.5); LYMPH # 0.5 10^3/uL (1.5-5.0); LYMPH % 5.9 % (24.0-44.0); MEAN CORPUSCULAR HEMOGLOBIN 32.7 pg (27.0-33.0); MEAN CORPUSCULAR HGB CONC 33.6 g/dl (32.0-36.5); MEAN CORPUSCULAR VOLUME 97.4 fl (80.0-96.0); MONO # 0.8 10^3/uL (0.0-0.8); MONO % 8.6 % (2.0-8.0); NEUTROPHILS # 7.7 10^3/uL (1.5-8.5); NEUTROPHILS % 84.9 % (36.0-66.0); PLATELET COUNT, AUTOMATED 205 10^3/uL (150-450); RED BLOOD COUNT 3.09 10^6/uL (4.30-6.10)
[2022-10-27 07:05] LABS: BLOOD UREA NITROGEN 14 MG/DL (9-23); CALCIUM LEVEL 9.2 MG/DL (8.5-10.1); CARBON DIOXIDE LEVEL 32 MMOL/L (20-31); CHLORIDE LEVEL 100 MMOL/L (98-107); CREATININE FOR GFR 0.74 MG/DL (0.70-1.30); GLOMERULAR FILTRATION RATE > 60.0 (>56); GLUCOSE, FASTING 94 MG/DL (60-100); SODIUM LEVEL 137 MMOL/L (136-145)
[2022-10-27 07:42] VITALS: BP 120/70; TEMP 98.6; O2SAT 91
[2022-10-27] MEDS: CHLORHEXIDINE GLUCONATE 0.12 % 15ML UDC (PERIDEX ORAL RINSE) MT SCH ×3 (08:20→21:16)
[2022-10-27] MEDS: PANTOPRAZOLE 40MG VIAL IV SCH (08:20)
[2022-10-27] MEDS: NYSTATIN 500,000U/5ML SUSP UDC SS SCH ×4 (08:20→21:15)
[2022-10-27] MEDS: ENOXAPARIN 40MG/0.4ML SYRINGE (J1650 PER 10MG) SC SCH (08:21)
[2022-10-27] MEDS: SODIUM CHLORIDE 0.9% INJ 10 ML SYR IV SCH (08:21)
[2022-10-27] MEDS: DOCUSATE SOD LIQ 100MG/10ML UDC PEG SCH ×2 (08:22→21:00)
[2022-10-27] MEDS: MAGIC MOUTHWASH SUSPENSION BTL SSP SCH ×3 (08:22→16:15)
[2022-10-27 12:00] VITALS: BP 121/79; TEMP 97.2; O2SAT 94
[2022-10-27 15:38] VITALS: BP 128/74; TEMP 96.4; O2SAT 93
[2022-10-27 20:56] VITALS: BP 143/75; TEMP 99.1; O2SAT 91
[2022-10-27] MEDS: SENNA 8.6 MG TAB (SENOKOT) PEG SCH (21:00)
[2022-10-27] MEDS: AMITRIPTYLINE 50 MG TAB PEG SCH (21:15)
[2022-10-28 00:33] VITALS: BP 110/71; TEMP 97.2; O2SAT 94
[2022-10-28] MEDS: oxyCODONE 5MG TAB PO SCH ×6 (01:41→21:03)
[2022-10-28 04:13] VITALS: BP 101/70; TEMP 97.6; O2SAT 91
[2022-10-28] MEDS: MORPHINE 10MG/0.5ML ORAL CONCENTRATE SOLUTION U/D SL PRN ×6 (06:03→22:48)
[2022-10-28 06:49] LABS: BASO % 0.1 % (0.0-1.0); HEMATOCRIT 31.3 % (42.0-52.0); HEMOGLOBIN 10.2 g/dl (13.5-17.5); LYMPH # 0.5 10^3/uL (1.5-5.0); LYMPH % 7.1 % (24.0-44.0); MEAN CORPUSCULAR HEMOGLOBIN 32.1 pg (27.0-33.0); MEAN CORPUSCULAR HGB CONC 32.6 g/dl (32.0-36.5); MEAN CORPUSCULAR VOLUME 98.4 fl (80.0-96.0); MONO # 0.9 10^3/uL (0.0-0.8); MONO % 11.6 % (2.0-8.0); NEUTROPHILS # 5.9 10^3/uL (1.5-8.5); NEUTROPHILS % 80.9 % (36.0-66.0); PLATELET COUNT, AUTOMATED 197 10^3/uL (150-450); RED BLOOD COUNT 3.18 10^6/uL (4.30-6.10); WHITE BLOOD COUNT 7.3 10^3/uL (4.0-10.0)
[2022-10-28 07:21] LABS: BLOOD UREA NITROGEN 17 MG/DL (9-23); CARBON DIOXIDE LEVEL 32 MMOL/L (20-31); CHLORIDE LEVEL 101 MMOL/L (98-107); CREATININE FOR GFR 0.74 MG/DL (0.70-1.30); GLOMERULAR FILTRATION RATE > 60.0 (>56); GLUCOSE, FASTING 82 MG/DL (60-100); POTASSIUM SERUM 4.1 MMOL/L (3.5-5.1); SODIUM LEVEL 136 MMOL/L (136-145)
[2022-10-28 07:26] VITALS: BP 123/75; TEMP 98.6; O2SAT 94
[2022-10-28] MEDS: MAGIC MOUTHWASH SUSPENSION BTL SSP SCH ×3 (08:50→17:23)
[2022-10-28] MEDS: CHLORHEXIDINE GLUCONATE 0.12 % 15ML UDC (PERIDEX ORAL RINSE) MT SCH ×3 (08:50→21:04)
[2022-10-28] MEDS: NYSTATIN 500,000U/5ML SUSP UDC SS SCH ×4 (08:50→21:04)
[2022-10-28] MEDS: DOCUSATE SOD LIQ 100MG/10ML UDC PEG SCH ×2 (08:50→21:00)
[2022-10-28] MEDS: ENOXAPARIN 40MG/0.4ML SYRINGE (J1650 PER 10MG) SC SCH (08:51)
[2022-10-28] MEDS: PANTOPRAZOLE 40MG VIAL IV SCH (08:52)
[2022-10-28] MEDS: SODIUM CHLORIDE 0.9% INJ 10 ML SYR IV SCH (08:52)
[2022-10-28] MEDS: fentaNYL 50 MCG/HR PATCH TD SCH (08:53)
[2022-10-28] MEDS: FENTANYL REMOVAL DOCUMENTATION MISC XX SCH (08:59)
[2022-10-28 11:44] VITALS: BP 118/68; TEMP 96.8; O2SAT 92
[2022-10-28 16:00] VITALS: BP 122/64; TEMP 97.5; O2SAT 92
[2022-10-28 20:00] VITALS: BP 117/72; TEMP 98.3; O2SAT 98
[2022-10-28] MEDS: SENNA 8.6 MG TAB (SENOKOT) PEG SCH (21:00)
[2022-10-28] MEDS: AMITRIPTYLINE 50 MG TAB PEG SCH (21:03)
[2022-10-28] MEDS ORDERED: AUGMENTIN ES SUSP POWDER 600MG/5ML 125ML BTL PEG SCH (22:00)
[2022-10-29] VITALS (7 sets, daily range): BP systolic 105–163; BP diastolic 68–90; TEMP 97.1–98.6; O2SAT 92–97
[2022-10-29] MEDS: AUGMENTIN SUSP POWDER 250MG/5ML BTL 75ML PEG SCH ×4 (00:41→21:18)
[2022-10-29] MEDS: oxyCODONE 5MG TAB PO SCH ×7 (00:46→21:18)
[2022-10-29] MEDS: MORPHINE 10MG/0.5ML ORAL CONCENTRATE SOLUTION U/D SL PRN ×4 (03:35→22:15)
[2022-10-29 05:26] LABS: BASO % 0.2 % (0.0-1.0); EOS % 0.4 % (0.0-3.0); HEMATOCRIT 28.9 % (42.0-52.0); HEMOGLOBIN 9.4 g/dl (13.5-17.5); LYMPH # 0.5 10^3/uL (1.5-5.0); LYMPH % 9.6 % (24.0-44.0); MEAN CORPUSCULAR HEMOGLOBIN 31.5 pg (27.0-33.0); MEAN CORPUSCULAR HGB CONC 32.5 g/dl (32.0-36.5); MONO # 0.7 10^3/uL (0.0-0.8); MONO % 14.8 % (2.0-8.0); NEUTROPHILS # 3.6 10^3/uL (1.5-8.5); NEUTROPHILS % 74.6 % (36.0-66.0); PLATELET COUNT, AUTOMATED 208 10^3/uL (150-450); RED BLOOD COUNT 2.98 10^6/uL (4.30-6.10); WHITE BLOOD COUNT 4.8 10^3/uL (4.0-10.0)
[2022-10-29 05:36] LABS: BLOOD UREA NITROGEN 15 MG/DL (9-23); CALCIUM LEVEL 8.9 MG/DL (8.5-10.1); CARBON DIOXIDE LEVEL 30 MMOL/L (20-31); CHLORIDE LEVEL 102 MMOL/L (98-107); CREATININE FOR GFR 0.69 MG/DL (0.70-1.30); GLOMERULAR FILTRATION RATE > 60.0 (>56); GLUCOSE, FASTING 99 MG/DL (60-100); SODIUM LEVEL 139 MMOL/L (136-145)
[2022-10-29] MEDS ORDERED: STERILE TALC POWDER 3GM VIAL IPL ONE ×2 (06:00→13:00)
[2022-10-29] MEDS ORDERED: D5W/0.9% SODIUM CHLORIDE 1,000 ML IV SCH (06:00)
[2022-10-29] MEDS: ENOXAPARIN 40MG/0.4ML SYRINGE (J1650 PER 10MG) SC SCH ×2 (09:00→09:49)
[2022-10-29] MEDS: SODIUM CHLORIDE 0.9% INJ 10 ML SYR IV SCH (09:00)
[2022-10-29] MEDS: DOCUSATE SOD LIQ 100MG/10ML UDC PEG SCH ×3 (09:00→21:00)
[2022-10-29] MEDS: MAGIC MOUTHWASH SUSPENSION BTL SSP SCH ×3 (09:45→17:09)
[2022-10-29] MEDS: CHLORHEXIDINE GLUCONATE 0.12 % 15ML UDC (PERIDEX ORAL RINSE) MT SCH ×3 (09:47→21:17)
[2022-10-29] MEDS: NYSTATIN 500,000U/5ML SUSP UDC SS SCH ×4 (09:48→21:17)
[2022-10-29] MEDS: PANTOPRAZOLE 40MG VIAL IV SCH (09:49)
[2022-10-29] MEDS ORDERED: ROCURONIUM BROMIDE 50MG/5ML VIAL As Ordered ONE (12:53)
[2022-10-29] MEDS ORDERED: SUGAMMADEX SODIUM 500 MG/5 ML VIAL (BRIDION) As Ordered ONE (12:53)
[2022-10-29] MEDS ORDERED: LIDOCAINE 2% 100MG/5ML SDV (FOR ANES.) As Ordered ONE (12:53)
[2022-10-29] MEDS ORDERED: propofoL 200 MG/20 ML VIAL As Ordered ONE (12:53)
[2022-10-29] MEDS ORDERED: ONDANSETRON 4MG 2ML VIAL As Ordered ONE (12:54)
[2022-10-29] MEDS ORDERED: fentaNYL 100 MCG/2 ML INJECTION As Ordered ONE ×2 (13:00→14:19)
[2022-10-29] MEDS ORDERED: MIDAZOLAM INJ 2MG/2ML VIAL As Ordered ONE (13:00)
[2022-10-29] MEDS ORDERED: LIDOCAINE W/EPINEPHRINE 1% 20ML VIAL As Ordered ONE (13:40)
[2022-10-29] MEDS ORDERED: OXYMETAZOLINE 0.05% NASAL SPRAY (AFRIN) As Ordered ONE (13:40)
[2022-10-29] MEDS ORDERED: LIDOCAINE 2% MDV 20ML VIAL As Ordered ONE (13:45)
[2022-10-29] MEDS ORDERED: LACRILUBE (AKWA TEARS) OPHTH OINT 3.5GM As Ordered ONE (14:13)
[2022-10-29] MEDS ORDERED: ACETAMINOPHEN 1000MG 100ML IV BAG As Ordered ONE (14:26)
[2022-10-29] MEDS ORDERED: ESMOLOL INJ 100MG/10ML VIAL As Ordered ONE (15:03)
[2022-10-29] MEDS ORDERED: LR 1,000 ML IV SCH (15:25)
[2022-10-29] MEDS ORDERED: ONDANSETRON 4MG 2ML VIAL IV PRN (15:25)
[2022-10-29] MEDS ORDERED: fentaNYL 100 MCG/2 ML INJECTION IV PRN (15:25)
[2022-10-29] MEDS ORDERED: HYDROMORPHONE HCL 0.5 MG/ 0.5 ML SYRINGE IV PRN (15:25)
[2022-10-29] MEDS ORDERED: oxyCODONE 5MG TAB PO PRN (15:25)
[2022-10-29] MEDS ORDERED: PILL CUTTER 1 EACH XX ONE (16:02)
[2022-10-29] MEDS: KETOROLAC 30 MG/ML 1ML VIAL IV SCH ×2 (18:16→23:59)
[2022-10-29] MEDS: SENNA 8.6 MG TAB (SENOKOT) PEG SCH (21:00)
[2022-10-29] MEDS: AMITRIPTYLINE 50 MG TAB PEG SCH (21:18)
[2022-10-30] VITALS (7 sets, daily range): BP systolic 96–116; BP diastolic 62–80; TEMP 97.1–98.3; O2SAT 95–98
[2022-10-30] MEDS: MORPHINE 10MG/0.5ML ORAL CONCENTRATE SOLUTION U/D SL PRN ×7 (00:24→23:16)
[2022-10-30] MEDS: oxyCODONE 5MG TAB PO SCH ×6 (01:00→20:52)
[2022-10-30] MEDS: AUGMENTIN SUSP POWDER 250MG/5ML BTL 75ML PEG SCH ×3 (04:55→20:52)
[2022-10-30 05:20] LABS: BASO % 0.1 % (0.0-1.0); HEMATOCRIT 25.7 % (42.0-52.0); HEMOGLOBIN 8.5 g/dl (13.5-17.5); LYMPH # 0.6 10^3/uL (1.5-5.0); LYMPH % 6.7 % (24.0-44.0); MEAN CORPUSCULAR HEMOGLOBIN 32.1 pg (27.0-33.0); MEAN CORPUSCULAR HGB CONC 33.1 g/dl (32.0-36.5); MONO # 0.9 10^3/uL (0.0-0.8); MONO % 10.5 % (2.0-8.0); NEUTROPHILS # 7.1 10^3/uL (1.5-8.5); NEUTROPHILS % 82.4 % (36.0-66.0); PLATELET COUNT, AUTOMATED 207 10^3/uL (150-450); RED BLOOD COUNT 2.65 10^6/uL (4.30-6.10); WHITE BLOOD COUNT 8.6 10^3/uL (4.0-10.0)
[2022-10-30 05:51] LABS: BLOOD UREA NITROGEN 16 MG/DL (9-23); CALCIUM LEVEL 8.2 MG/DL (8.5-10.1); CARBON DIOXIDE LEVEL 29 MMOL/L (20-31); CHLORIDE LEVEL 104 MMOL/L (98-107); CREATININE FOR GFR 0.67 MG/DL (0.70-1.30); GLOMERULAR FILTRATION RATE > 60.0 (>56); GLUCOSE, FASTING 96 MG/DL (60-100); POTASSIUM SERUM 4.1 MMOL/L (3.5-5.1); SODIUM LEVEL 139 MMOL/L (136-145)
[2022-10-30] MEDS: KETOROLAC 30 MG/ML 1ML VIAL IV SCH ×4 (05:59→23:09)
[2022-10-30] MEDS: SODIUM CHLORIDE 0.9% INJ 10 ML SYR IV PRN (06:00)
[2022-10-30] MEDS: MAGIC MOUTHWASH SUSPENSION BTL SSP SCH ×3 (09:05→17:37)
[2022-10-30] MEDS: DOCUSATE SOD LIQ 100MG/10ML UDC PEG SCH ×2 (09:05→20:50)
[2022-10-30] MEDS: CHLORHEXIDINE GLUCONATE 0.12 % 15ML UDC (PERIDEX ORAL RINSE) MT SCH ×3 (09:05→20:52)
[2022-10-30] MEDS: NYSTATIN 500,000U/5ML SUSP UDC SS SCH ×4 (09:06→20:56)
[2022-10-30] MEDS: ENOXAPARIN 40MG/0.4ML SYRINGE (J1650 PER 10MG) SC SCH (09:07)
[2022-10-30] MEDS: PANTOPRAZOLE 40MG VIAL IV SCH (09:08)
[2022-10-30] MEDS: SODIUM CHLORIDE 0.9% INJ 10 ML SYR IV SCH (09:08)
[2022-10-30] MEDS: NS 1,000 ML IV SCH ×2 (13:38→23:09)
[2022-10-30] MEDS: SENNA 8.6 MG TAB (SENOKOT) PEG SCH (20:50)
[2022-10-30] MEDS: AMITRIPTYLINE 50 MG TAB PEG SCH (20:52)
[2022-10-31] MEDS: oxyCODONE 5MG TAB PO SCH ×6 (01:32→21:20)
[2022-10-31 03:17] VITALS: BP 115/68; TEMP 98.6; O2SAT 97
[2022-10-31] MEDS: MORPHINE 10MG/0.5ML ORAL CONCENTRATE SOLUTION U/D SL PRN ×6 (03:24→22:12)
[2022-10-31 04:47] LABS: BASO % 0.4 % (0.0-1.0); EOS # 0.3 10^3/uL (0.0-0.5); EOS % 3.7 % (0.0-3.0); HEMATOCRIT 25.5 % (42.0-52.0); HEMOGLOBIN 8.3 g/dl (13.5-17.5); LYMPH # 0.5 10^3/uL (1.5-5.0); LYMPH % 7.1 % (24.0-44.0); MEAN CORPUSCULAR HEMOGLOBIN 31.9 pg (27.0-33.0); MEAN CORPUSCULAR HGB CONC 32.5 g/dl (32.0-36.5); MEAN CORPUSCULAR VOLUME 98.1 fl (80.0-96.0); MONO % 13.6 % (2.0-8.0); NEUTROPHILS # 5.5 10^3/uL (1.5-8.5); NEUTROPHILS % 74.7 % (36.0-66.0); PLATELET COUNT, AUTOMATED 211 10^3/uL (150-450); WHITE BLOOD COUNT 7.3 10^3/uL (4.0-10.0)
[2022-10-31 05:18] LABS: BLOOD UREA NITROGEN 15 MG/DL (9-23); CARBON DIOXIDE LEVEL 27 MMOL/L (20-31); CHLORIDE LEVEL 105 MMOL/L (98-107); CREATININE FOR GFR 0.66 MG/DL (0.70-1.30); GLOMERULAR FILTRATION RATE > 60.0 (>56); GLUCOSE, FASTING 93 MG/DL (60-100); POTASSIUM SERUM 4.1 MMOL/L (3.5-5.1); SODIUM LEVEL 140 MMOL/L (136-145)
[2022-10-31] MEDS: AUGMENTIN SUSP POWDER 250MG/5ML BTL 75ML PEG SCH ×3 (05:26→21:20)
[2022-10-31] MEDS: KETOROLAC 30 MG/ML 1ML VIAL IV SCH ×3 (05:26→17:32)
[2022-10-31 07:44] VITALS: BP 110/65; TEMP 97.4; O2SAT 95
[2022-10-31] MEDS: DOCUSATE SOD LIQ 100MG/10ML UDC PEG SCH ×2 (08:13→21:00)
[2022-10-31] MEDS: NYSTATIN 500,000U/5ML SUSP UDC SS SCH ×4 (08:13→21:20)
[2022-10-31] MEDS: CHLORHEXIDINE GLUCONATE 0.12 % 15ML UDC (PERIDEX ORAL RINSE) MT SCH ×3 (08:13→21:19)
[2022-10-31] MEDS: SODIUM CHLORIDE 0.9% INJ 10 ML SYR IV SCH ×2 (08:14→08:22)
[2022-10-31] MEDS: ENOXAPARIN 40MG/0.4ML SYRINGE (J1650 PER 10MG) SC SCH (08:14)
[2022-10-31] MEDS: PANTOPRAZOLE 40MG VIAL IV SCH (08:14)
[2022-10-31] MEDS: fentaNYL 50 MCG/HR PATCH TD SCH (08:15)
[2022-10-31] MEDS: MAGIC MOUTHWASH SUSPENSION BTL SSP SCH ×3 (08:18→16:03)
[2022-10-31] MEDS: NS 1,000 ML IV SCH (08:18)
[2022-10-31] MEDS: FENTANYL REMOVAL DOCUMENTATION MISC XX SCH (08:28)
[2022-10-31] MEDS ORDERED: VARIBAR PUDDING 40% w/v 230ML TUBE As Ordered ONE (11:23)
[2022-10-31] MEDS ORDERED: VARIBAR NECTAR 40% w/v 240ML SUSP BTL As Ordered ONE (11:23)
[2022-10-31] MEDS ORDERED: BARIUM SULFATE 700 MG TABLET (E-Z-DISK) As Ordered ONE (11:24)
[2022-10-31] MEDS ORDERED: E-Z-PAQUE 96% w/w SUSP 176GM BTL As Ordered ONE (11:24)
[2022-10-31 11:41] VITALS: BP 135/75; TEMP 97.7; O2SAT 95
[2022-10-31 15:43] VITALS: BP 104/65; TEMP 97.9; O2SAT 97
[2022-10-31 20:17] VITALS: BP 113/70; TEMP 98.2; O2SAT 96
[2022-10-31] MEDS: SENNA 8.6 MG TAB (SENOKOT) PEG SCH (21:00)
[2022-10-31] MEDS: SALIVA SUBSTITUTE(MOUTHKOTE) BTL MT PRN (21:19)
[2022-10-31] MEDS: AMITRIPTYLINE 50 MG TAB PEG SCH (21:20)
[2022-11-01 00:21] VITALS: BP 112/74; TEMP 98.5; O2SAT 95
[2022-11-01] MEDS: KETOROLAC 30 MG/ML 1ML VIAL IV SCH ×5 (00:24→23:16)
[2022-11-01] MEDS: MORPHINE 10MG/0.5ML ORAL CONCENTRATE SOLUTION U/D SL PRN ×7 (00:24→22:59)
[2022-11-01] MEDS: oxyCODONE 5MG TAB PO SCH ×6 (00:54→21:12)
[2022-11-01 04:51] VITALS: BP 117/82; TEMP 97.6; O2SAT 93
[2022-11-01] MEDS: AUGMENTIN SUSP POWDER 250MG/5ML BTL 75ML PEG SCH ×3 (05:49→21:13)
[2022-11-01 06:16] LABS: HEMATOCRIT 26.9 % (42.0-52.0); HEMOGLOBIN 8.7 g/dl (13.5-17.5); MEAN CORPUSCULAR HEMOGLOBIN 31.8 pg (27.0-33.0); MEAN CORPUSCULAR HGB CONC 32.3 g/dl (32.0-36.5); MEAN CORPUSCULAR VOLUME 98.2 fl (80.0-96.0); PLATELET COUNT, AUTOMATED 219 10^3/uL (150-450); RED BLOOD COUNT 2.74 10^6/uL (4.30-6.10); WHITE BLOOD COUNT 8.3 10^3/uL (4.0-10.0)
[2022-11-01 06:42] LABS: BLOOD UREA NITROGEN 12 MG/DL (9-23); CALCIUM LEVEL 8.7 MG/DL (8.5-10.1); CARBON DIOXIDE LEVEL 28 MMOL/L (20-31); CHLORIDE LEVEL 105 MMOL/L (98-107); CREATININE FOR GFR 0.62 MG/DL (0.70-1.30); GLOMERULAR FILTRATION RATE > 60.0 (>56); GLUCOSE, FASTING 93 MG/DL (60-100); POTASSIUM SERUM 4.2 MMOL/L (3.5-5.1); SODIUM LEVEL 139 MMOL/L (136-145)
[2022-11-01 07:58] VITALS: BP 110/68; TEMP 97.4; O2SAT 95
[2022-11-01] MEDS: ENOXAPARIN 40MG/0.4ML SYRINGE (J1650 PER 10MG) SC SCH (09:20)
[2022-11-01] MEDS: PANTOPRAZOLE 40MG VIAL IV SCH (09:20)
[2022-11-01] MEDS: DOCUSATE SOD LIQ 100MG/10ML UDC PEG SCH ×2 (09:21→21:00)
[2022-11-01] MEDS: CHLORHEXIDINE GLUCONATE 0.12 % 15ML UDC (PERIDEX ORAL RINSE) MT SCH ×3 (09:21→21:12)
[2022-11-01] MEDS: NYSTATIN 500,000U/5ML SUSP UDC SS SCH ×4 (09:21→21:12)
[2022-11-01] MEDS: SODIUM CHLORIDE 0.9% INJ 10 ML SYR IV SCH (09:22)
[2022-11-01] MEDS: MAGIC MOUTHWASH SUSPENSION BTL SSP SCH ×3 (09:24→17:50)
[2022-11-01 11:46] VITALS: BP 99/63; TEMP 97; O2SAT 96
[2022-11-01 15:38] VITALS: BP 108/65; TEMP 97.3; O2SAT 93
[2022-11-01 20:17] VITALS: BP 94/60; TEMP 97.3; O2SAT 92
[2022-11-01] MEDS: SENNA 8.6 MG TAB (SENOKOT) PEG SCH (21:00)
[2022-11-01] MEDS: AMITRIPTYLINE 50 MG TAB PEG SCH (21:12)
[2022-11-01] MEDS: SALIVA SUBSTITUTE(MOUTHKOTE) BTL MT PRN (21:12)
[2022-11-02] VITALS (7 sets, daily range): BP systolic 91–118; BP diastolic 57–76; TEMP 97.3–98.2; O2SAT 95–98
[2022-11-02] MEDS: MORPHINE 10MG/0.5ML ORAL CONCENTRATE SOLUTION U/D SL PRN ×9 (01:12→23:04)
[2022-11-02] MEDS: oxyCODONE 5MG TAB PO SCH ×6 (01:12→20:37)
[2022-11-02 04:55] LABS: HEMATOCRIT 27.2 % (42.0-52.0); HEMOGLOBIN 8.7 g/dl (13.5-17.5); MEAN CORPUSCULAR HEMOGLOBIN 31.8 pg (27.0-33.0); MEAN CORPUSCULAR VOLUME 99.3 fl (80.0-96.0); PLATELET COUNT, AUTOMATED 230 10^3/uL (150-450); RED BLOOD COUNT 2.74 10^6/uL (4.30-6.10); WHITE BLOOD COUNT 8.6 10^3/uL (4.0-10.0)
[2022-11-02 05:25] LABS: BLOOD UREA NITROGEN 14 MG/DL (9-23); CALCIUM LEVEL 8.8 MG/DL (8.5-10.1); CARBON DIOXIDE LEVEL 31 MMOL/L (20-31); CHLORIDE LEVEL 103 MMOL/L (98-107); GLOMERULAR FILTRATION RATE > 60.0 (>56); GLUCOSE, FASTING 86 MG/DL (60-100); POTASSIUM SERUM 4.7 MMOL/L (3.5-5.1); SODIUM LEVEL 139 MMOL/L (136-145)
[2022-11-02] MEDS: AUGMENTIN SUSP POWDER 250MG/5ML BTL 75ML PEG SCH ×3 (05:31→21:17)
[2022-11-02] MEDS: KETOROLAC 30 MG/ML 1ML VIAL IV SCH ×4 (05:31→23:53)
[2022-11-02] MEDS: SALIVA SUBSTITUTE(MOUTHKOTE) BTL MT PRN ×2 (05:31→20:36)
[2022-11-02] MEDS: MAGIC MOUTHWASH SUSPENSION BTL SSP SCH ×3 (08:09→18:31)
[2022-11-02] MEDS: DOCUSATE SOD LIQ 100MG/10ML UDC PEG SCH ×2 (09:00→20:37)
[2022-11-02] MEDS: PANTOPRAZOLE 40MG VIAL IV SCH (09:05)
[2022-11-02] MEDS: ENOXAPARIN 40MG/0.4ML SYRINGE (J1650 PER 10MG) SC SCH (09:06)
[2022-11-02] MEDS: NYSTATIN 500,000U/5ML SUSP UDC SS SCH ×4 (09:07→20:37)
[2022-11-02] MEDS: CHLORHEXIDINE GLUCONATE 0.12 % 15ML UDC (PERIDEX ORAL RINSE) MT SCH ×3 (09:08→20:37)
[2022-11-02] MEDS: SODIUM CHLORIDE 0.9% INJ 10 ML SYR IV SCH (09:10)
[2022-11-02] MEDS: AMITRIPTYLINE 50 MG TAB PEG SCH (20:36)
[2022-11-02] MEDS: SENNA 8.6 MG TAB (SENOKOT) PEG SCH (20:38)
[2022-11-03] MEDS: MORPHINE 10MG/0.5ML ORAL CONCENTRATE SOLUTION U/D SL PRN ×5 (01:14→14:41)
[2022-11-03] MEDS: oxyCODONE 5MG TAB PO SCH ×4 (01:14→13:05)
[2022-11-03 03:40] VITALS: BP 100/61; TEMP 98.2; O2SAT 97
[2022-11-03 05:06] LABS: HEMATOCRIT 25.2 % (42.0-52.0); HEMOGLOBIN 7.9 g/dl (13.5-17.5); MEAN CORPUSCULAR HEMOGLOBIN 30.7 pg (27.0-33.0); MEAN CORPUSCULAR HGB CONC 31.3 g/dl (32.0-36.5); MEAN CORPUSCULAR VOLUME 98.1 fl (80.0-96.0); PLATELET COUNT, AUTOMATED 236 10^3/uL (150-450); RED BLOOD COUNT 2.57 10^6/uL (4.30-6.10)
[2022-11-03 05:16] LABS: BLOOD UREA NITROGEN 17 MG/DL (9-23); CALCIUM LEVEL 8.5 MG/DL (8.5-10.1); CARBON DIOXIDE LEVEL 31 MMOL/L (20-31); CHLORIDE LEVEL 102 MMOL/L (98-107); CREATININE FOR GFR 0.73 MG/DL (0.70-1.30); GLOMERULAR FILTRATION RATE > 60.0 (>56); GLUCOSE, FASTING 93 MG/DL (60-100); POTASSIUM SERUM 4.3 MMOL/L (3.5-5.1); SODIUM LEVEL 138 MMOL/L (136-145)
[2022-11-03] MEDS: KETOROLAC 30 MG/ML 1ML VIAL IV SCH ×2 (06:01→12:00)
[2022-11-03] MEDS: AUGMENTIN SUSP POWDER 250MG/5ML BTL 75ML PEG SCH ×2 (06:02→13:05)
[2022-11-03 07:09] LABS: FOLATE 15.57 NG/ML (>5.4)
[2022-11-03 07:12] LABS: FERRITIN 535.8 NG/ML (10.5-307.3); IRON (FE) 14 UG/DL (65-175); TOTAL IRON BINDING CAPACITY 176 UG/DL (250-425); VITAMIN B12 LEVEL 417 PG/ML (211-911)
[2022-11-03 07:29] VITALS: BP 107/74; TEMP 98.3; O2SAT 94
[2022-11-03] MEDS: DOCUSATE SOD LIQ 100MG/10ML UDC PEG SCH (09:00)
[2022-11-03] MEDS: NYSTATIN 500,000U/5ML SUSP UDC SS SCH ×2 (09:00→13:00)
[2022-11-03] MEDS: CHLORHEXIDINE GLUCONATE 0.12 % 15ML UDC (PERIDEX ORAL RINSE) MT SCH (09:00)
[2022-11-03] MEDS: SODIUM CHLORIDE 0.9% INJ 10 ML SYR IV SCH (09:03)
[2022-11-03] MEDS: PANTOPRAZOLE 40MG VIAL IV SCH (09:03)
[2022-11-03] MEDS: ENOXAPARIN 40MG/0.4ML SYRINGE (J1650 PER 10MG) SC SCH (09:03)
[2022-11-03] MEDS: MAGIC MOUTHWASH SUSPENSION BTL SSP SCH ×2 (09:04→11:34)
[2022-11-03] MEDS: FENTANYL REMOVAL DOCUMENTATION MISC XX SCH (10:13)
[2022-11-03] MEDS: fentaNYL 50 MCG/HR PATCH TD SCH (10:13)
[2022-11-03 11:34] VITALS: BP 115/60; TEMP 98.6; O2SAT 96
[2022-11-03] MEDS ORDERED: FERR1TAB8 PO (15:11)
[2022-11-03] MEDS ORDERED: SENN-188 PEG (15:11)
[2022-11-03] MEDS ORDERED: ACET1TAB55 PEG (15:11)
[2022-11-03] MEDS ORDERED: FENT1PAT25 TD (15:13)
[2022-11-03] MEDS ORDERED: DOCU5LIQ PO (15:20)
[2022-11-04] MEDS ORDERED: FERROUS SULFATE 325MG TAB PO SCH (09:00)
[2022-11-06] MEDS ORDERED: AMIT50TA PO ×3 (08:42→16:04)
== END 2022-11-03 16:05 | disposition home health service (06) | DRG 143 ==
LOC: M PCU 14:23
PROVIDERS: ADMIT Internal Medicine; ATTEND Internal Medicine
PROC: 0W9900Z Drainage of Right Pleural Cavity with Drainage Device, Open Approach (ICD-10-PCS; principal; 2022-10-19)
PROC: 0W9900Z Drainage of Right Pleural Cavity with Drainage Device, Open Approach (ICD-10-PCS; 2022-10-22)
PROC: 0CBM8ZX Excision of Pharynx, Via Natural or Artificial Opening Endoscopic, Diagnostic (ICD-10-PCS; 2022-10-29)
PROC: 3E0L3GC Introduction of Other Therapeutic Substance into Pleural Cavity, Percutaneous Approach (ICD-10-PCS; 2022-10-29)
DX: J95.811 Postprocedural pneumothorax (principal); J86.9 Pyothorax without fistula; J69.0 Pneumonitis due to inhalation of food and vomit; E43 Unspecified severe protein-calorie malnutrition; C77.0 Secondary and unspecified malignant neoplasm of lymph nodes of head, face and neck; I95.9 Hypotension, unspecified; R13.10 Dysphagia, unspecified; J84.10 Pulmonary fibrosis, unspecified; C02.0 Malignant neoplasm of dorsal surface of tongue; Z66 Do not resuscitate; R91.8 Other nonspecific abnormal finding of lung field; F17.210 Nicotine dependence, cigarettes, uncomplicated; G89.3 Neoplasm related pain (acute) (chronic); T81.82XA Emphysema (subcutaneous) resulting from a procedure, initial encounter; Y83.8 Other surgical procedures as the cause of abnormal reaction of the patient, or of later complication, without mention of misadventure at the time of the procedure; Z68.1 Body mass index [BMI] 19.9 or less, adult; F17.220 Nicotine dependence, chewing tobacco, uncomplicated; J95.812 Postprocedural air leak; Z79.899 Other long term (current) drug therapy; Z92.21 Personal history of antineoplastic chemotherapy; Z93.1 Gastrostomy status

== ENCOUNTER → 2022-10-19 | Outpatient (CLI) | payer OTHER ==
[~2022-10-19] MED LIST changes: +HOME MED LIST COMPLETE! XX SCH; +LIDOCAINE 1% MDV 20ML VIAL As Ordered ONE; +MIDAZOLAM INJ 2MG/2ML VIAL As Ordered ONE; +NYST-38 SS; +[UNRECOGNIZED DRUG - CODE] PO; +fentaNYL 100 MCG/2 ML INJECTION As Ordered ONE; +flumazeniL 0.5MG/5ML VIAL As Ordered ONE; +oxyCODONE 5MG TAB As Ordered ONE; +oxyCODONE 5MG TAB PO ONE
[2022-10-19 09:15] VITALS: TEMP 99.6
[2022-10-19 13:30] VITALS: BP 151/92; O2SAT 99
== END ==
LOC: M IRPRO 08:52
PROVIDERS: ATTEND General Practice
DX: R91.8 Other nonspecific abnormal finding of lung field (principal); C02.0 Malignant neoplasm of dorsal surface of tongue; J95.811 Postprocedural pneumothorax
CPT/HCPCS: 32408; 71045; 88305; J2250

== ENCOUNTER → 2022-10-29 | Outpatient (CLI) | payer OTHER ==
[~2022-10-29] MED LIST changes: +ACET1TAB55 PEG; +DOCU5LIQ PO; +FENT1PAT25 TD; +FERR1TAB8 PO; +NYST-38 SS; +SENN-188 PEG; +[UNRECOGNIZED DRUG - CODE] PO
== END ==
LOC: M ONCR 15:00
PROVIDERS: ATTEND General Practice
DX: C02.9 Malignant neoplasm of tongue, unspecified (principal)

== ENCOUNTER → 2022-11-08 | Outpatient (CLI) | payer OTHER | LOC: M PLAIMG 10:16 | PROVIDERS: ATTEND Thoracic Surgery (Cardiothoracic Vascular Surgery) | DX: J93.9 Pneumothorax, unspecified (principal) ==

== ENCOUNTER → 2022-11-21 | Outpatient (CLI) | payer OTHER | LOC: M ONCR 11:54 | PROVIDERS: ATTEND General Practice | DX: C02.0 Malignant neoplasm of dorsal surface of tongue (principal); F17.210 Nicotine dependence, cigarettes, uncomplicated; Z71.2 Person consulting for explanation of examination or test findings; Z72.89 Other problems related to lifestyle; Z79.899 Other long term (current) drug therapy; Z92.21 Personal history of antineoplastic chemotherapy; Z92.3 Personal history of irradiation; Z93.1 Gastrostomy status | CPT/HCPCS: 31575; G0463 ==

== ENCOUNTER → 2022-12-04 | Outpatient (CLI) | payer OTHER ==
[~2022-12-04] VITALS: Ht 170.2 cm; Wt 47.9 kg
[~2022-12-04] MED LIST changes: +FENT12DI8 TOP; +LEVO25TA5 PO
[2022-12-04 09:34] VITALS: BP 117/80; TEMP 97.8; O2SAT 98
== END ==
LOC: M PAL 09:26
PROVIDERS: ATTEND Nurse Practitioner Adult Health
DX: C02.0 Malignant neoplasm of dorsal surface of tongue (principal); F06.4 Anxiety disorder due to known physiological condition; G47.00 Insomnia, unspecified; G89.3 Neoplasm related pain (acute) (chronic); K59.00 Constipation, unspecified; F17.210 Nicotine dependence, cigarettes, uncomplicated; R60.0 Localized edema; R64 Cachexia; Z51.5 Encounter for palliative care; Z66 Do not resuscitate; Z72.89 Other problems related to lifestyle; Z79.891 Long term (current) use of opiate analgesic; Z79.899 Other long term (current) drug therapy; Z80.1 Family history of malignant neoplasm of trachea, bronchus and lung; Z80.8 Family history of malignant neoplasm of other organs or systems; Z92.21 Personal history of antineoplastic chemotherapy; Z92.3 Personal history of irradiation; Z93.1 Gastrostomy status

== ENCOUNTER → 2022-12-25 | Outpatient (CLI) | payer OTHER ==
[~2022-12-25] MED LIST changes: +[UNRECOGNIZED DRUG - CODE] TOP
== END ==
LOC: M ONCR 11:12
PROVIDERS: ATTEND Radiology Radiation Oncology
DX: C02.0 Malignant neoplasm of dorsal surface of tongue (principal); F17.210 Nicotine dependence, cigarettes, uncomplicated; Z71.2 Person consulting for explanation of examination or test findings; Z79.890 Hormone replacement therapy; Z79.891 Long term (current) use of opiate analgesic; Z79.899 Other long term (current) drug therapy; Z72.89 Other problems related to lifestyle; Z92.3 Personal history of irradiation; Z93.1 Gastrostomy status

== ENCOUNTER → 2023-01-30 | Outpatient (CLI) | payer OTHER ==
[~2023-01-30] MED LIST changes: +FENT75DI29 TD
== END ==
LOC: M PAL 10:24
PROVIDERS: ATTEND Nurse Practitioner Adult Health
DX: C02.0 Malignant neoplasm of dorsal surface of tongue (principal); G89.3 Neoplasm related pain (acute) (chronic); F06.4 Anxiety disorder due to known physiological condition; G47.00 Insomnia, unspecified; K59.00 Constipation, unspecified; R60.0 Localized edema; F17.210 Nicotine dependence, cigarettes, uncomplicated; R64 Cachexia; Z51.5 Encounter for palliative care; Z72.89 Other problems related to lifestyle; Z79.890 Hormone replacement therapy; Z79.891 Long term (current) use of opiate analgesic; Z79.899 Other long term (current) drug therapy; Z80.1 Family history of malignant neoplasm of trachea, bronchus and lung; Z80.8 Family history of malignant neoplasm of other organs or systems; Z92.21 Personal history of antineoplastic chemotherapy; Z92.3 Personal history of irradiation; Z93.1 Gastrostomy status; Z92.25 Personal history of immunosuppression therapy

== ENCOUNTER → 2023-01-30 | Outpatient (CLI) | payer OTHER | LOC: M ONCR 12:45 | PROVIDERS: ATTEND General Practice | DX: C02.0 Malignant neoplasm of dorsal surface of tongue (principal); F17.210 Nicotine dependence, cigarettes, uncomplicated; Z71.2 Person consulting for explanation of examination or test findings; Z72.89 Other problems related to lifestyle; Z79.890 Hormone replacement therapy; Z79.891 Long term (current) use of opiate analgesic; Z79.899 Other long term (current) drug therapy; Z92.21 Personal history of antineoplastic chemotherapy; Z92.3 Personal history of irradiation ==

== ENCOUNTER → 2023-02-04 | Outpatient (CLI) | payer OTHER | LOC: M PLARAD 13:10 | PROVIDERS: ATTEND General Practice | DX: C02.0 Malignant neoplasm of dorsal surface of tongue (principal) | CPT/HCPCS: 78815; A9552 ==

== ENCOUNTER → 2023-02-07 | Outpatient (CLI) | payer OTHER | LOC: M ONCR 10:02 | PROVIDERS: ATTEND General Practice | DX: C02.0 Malignant neoplasm of dorsal surface of tongue (principal); R93.89 Abnormal findings on diagnostic imaging of other specified body structures; R63.4 Abnormal weight loss; Z71.2 Person consulting for explanation of examination or test findings ==

== ENCOUNTER → 2023-02-14 | Outpatient (CLI) | payer OTHER ==
[~2023-02-14] MED LIST changes: +MIRT-84 PO
== END ==
LOC: M ONCR 13:49
PROVIDERS: ATTEND General Practice
DX: C02.0 Malignant neoplasm of dorsal surface of tongue (principal); H92.09 Otalgia, unspecified ear; G47.00 Insomnia, unspecified; G89.29 Other chronic pain; Z79.891 Long term (current) use of opiate analgesic

== ENCOUNTER → 2023-02-26 | Outpatient (CLI) | payer OTHER ==
[~2023-02-26] VITALS: Ht 182.9 cm; Wt 47.6 kg
[~2023-02-26] MED LIST changes: +FENT100D25 TD
[2023-02-26 10:32] VITALS: BP 118/18; O2SAT 100
== END ==
LOC: M ONCR 10:18 → M PAL 10:18
PROVIDERS: ATTEND Nurse Practitioner Adult Health
DX: C02.0 Malignant neoplasm of dorsal surface of tongue (principal); G89.3 Neoplasm related pain (acute) (chronic); F06.4 Anxiety disorder due to known physiological condition; G47.00 Insomnia, unspecified; K59.00 Constipation, unspecified; M54.50 Low back pain, unspecified; F17.210 Nicotine dependence, cigarettes, uncomplicated; R64 Cachexia; Z51.5 Encounter for palliative care; Z72.89 Other problems related to lifestyle; Z79.890 Hormone replacement therapy; Z79.891 Long term (current) use of opiate analgesic; Z79.899 Other long term (current) drug therapy; Z80.1 Family history of malignant neoplasm of trachea, bronchus and lung; Z80.8 Family history of malignant neoplasm of other organs or systems; Z92.21 Personal history of antineoplastic chemotherapy; Z92.3 Personal history of irradiation; Z93.1 Gastrostomy status; Z92.25 Personal history of immunosuppression therapy

== ENCOUNTER → 2023-03-05 | Outpatient (CLI) | payer OTHER ==
[~2023-03-05] MED LIST changes: +DICL20GE TP
== END ==
LOC: M ONCR 11:25
PROVIDERS: ATTEND General Practice
DX: Z01.89 Encounter for other specified special examinations (principal); C79.89 Secondary malignant neoplasm of other specified sites; M54.9 Dorsalgia, unspecified

== ENCOUNTER → 2023-03-20 | Outpatient (CLI) | payer OTHER ==
[~2023-03-20] VITALS: Ht 182.9 cm; Wt 46.0 kg
[2023-03-20 11:27] VITALS: BP 94/69; O2SAT 100
== END ==
LOC: M PAL 10:19
PROVIDERS: ATTEND Nurse Practitioner Adult Health
DX: C02.0 Malignant neoplasm of dorsal surface of tongue (principal); G89.3 Neoplasm related pain (acute) (chronic); R13.10 Dysphagia, unspecified; F06.4 Anxiety disorder due to known physiological condition; G47.00 Insomnia, unspecified; K59.00 Constipation, unspecified; F17.210 Nicotine dependence, cigarettes, uncomplicated; R64 Cachexia; Z51.5 Encounter for palliative care; Z72.89 Other problems related to lifestyle; Z79.890 Hormone replacement therapy; Z79.891 Long term (current) use of opiate analgesic; Z79.899 Other long term (current) drug therapy; Z80.1 Family history of malignant neoplasm of trachea, bronchus and lung; Z80.8 Family history of malignant neoplasm of other organs or systems; Z92.21 Personal history of antineoplastic chemotherapy; Z92.25 Personal history of immunosuppression therapy; Z92.3 Personal history of irradiation; Z93.1 Gastrostomy status

== ENCOUNTER → 2023-03-20 | Outpatient (CLI) | payer OTHER | LOC: M ONCR 10:16 | PROVIDERS: ATTEND General Practice | DX: C02.0 Malignant neoplasm of dorsal surface of tongue (principal); F17.210 Nicotine dependence, cigarettes, uncomplicated; R64 Cachexia; Z71.2 Person consulting for explanation of examination or test findings; Z72.89 Other problems related to lifestyle; Z79.891 Long term (current) use of opiate analgesic; Z79.899 Other long term (current) drug therapy; Z79.890 Hormone replacement therapy; Z92.21 Personal history of antineoplastic chemotherapy; Z92.3 Personal history of irradiation ==

== ENCOUNTER → 2023-04-04 | Outpatient (CLI) | payer OTHER ==
[~2023-04-04] VITALS: Ht 182.9 cm; Wt 45.3 kg
[2023-04-04 11:42] VITALS: BP 113/76; O2SAT 99
== END ==
LOC: M PAL 11:10
PROVIDERS: ATTEND Nurse Practitioner Adult Health
DX: C02.0 Malignant neoplasm of dorsal surface of tongue (principal); G89.3 Neoplasm related pain (acute) (chronic); R13.10 Dysphagia, unspecified; F06.4 Anxiety disorder due to known physiological condition; G47.00 Insomnia, unspecified; K59.00 Constipation, unspecified; F17.210 Nicotine dependence, cigarettes, uncomplicated; R64 Cachexia; Z51.5 Encounter for palliative care; Z72.89 Other problems related to lifestyle; Z79.890 Hormone replacement therapy; Z79.891 Long term (current) use of opiate analgesic; Z79.899 Other long term (current) drug therapy; Z80.1 Family history of malignant neoplasm of trachea, bronchus and lung; Z80.8 Family history of malignant neoplasm of other organs or systems; Z92.21 Personal history of antineoplastic chemotherapy; Z92.25 Personal history of immunosuppression therapy; Z92.3 Personal history of irradiation; Z93.1 Gastrostomy status

== ENCOUNTER → 2023-04-18 | Outpatient (CLI) | payer OTHER ==
[~2023-04-18] VITALS: Ht 182.9 cm; Wt 43.5 kg
[~2023-04-18] MED LIST changes: +DEXA0.5E2 PO
[2023-04-18 15:38] VITALS: BP 118/84; O2SAT 100
== END ==
LOC: M PAL 14:34
PROVIDERS: ATTEND Nurse Practitioner Adult Health
DX: C02.0 Malignant neoplasm of dorsal surface of tongue (principal); G89.3 Neoplasm related pain (acute) (chronic); R13.10 Dysphagia, unspecified; F06.4 Anxiety disorder due to known physiological condition; G47.00 Insomnia, unspecified; K59.00 Constipation, unspecified; F17.210 Nicotine dependence, cigarettes, uncomplicated; R64 Cachexia; Z51.5 Encounter for palliative care; Z72.89 Other problems related to lifestyle; Z79.890 Hormone replacement therapy; Z79.891 Long term (current) use of opiate analgesic; Z79.899 Other long term (current) drug therapy; Z80.1 Family history of malignant neoplasm of trachea, bronchus and lung; Z80.8 Family history of malignant neoplasm of other organs or systems; Z92.21 Personal history of antineoplastic chemotherapy; Z92.25 Personal history of immunosuppression therapy; Z92.3 Personal history of irradiation; Z93.1 Gastrostomy status

== ENCOUNTER → 2023-05-08 | Outpatient (CLI) | payer OTHER ==
[~2023-05-08] VITALS: Ht 182.9 cm; Wt 43.5 kg
[2023-05-08 10:10] VITALS: BP 107/80; O2SAT 89
[2023-05-08 11:10] VITALS: O2SAT 97
== END ==
LOC: M PAL 10:05
PROVIDERS: ATTEND Nurse Practitioner Adult Health
DX: C02.0 Malignant neoplasm of dorsal surface of tongue (principal); G89.3 Neoplasm related pain (acute) (chronic); R13.10 Dysphagia, unspecified; F06.1 Catatonic disorder due to known physiological condition; G47.00 Insomnia, unspecified; K59.00 Constipation, unspecified; F17.210 Nicotine dependence, cigarettes, uncomplicated; R64 Cachexia; Z51.5 Encounter for palliative care; Z72.89 Other problems related to lifestyle; Z79.52 Long term (current) use of systemic steroids; Z79.890 Hormone replacement therapy; Z79.891 Long term (current) use of opiate analgesic; Z79.899 Other long term (current) drug therapy; Z80.1 Family history of malignant neoplasm of trachea, bronchus and lung; Z80.8 Family history of malignant neoplasm of other organs or systems; Z92.21 Personal history of antineoplastic chemotherapy; Z92.25 Personal history of immunosuppression therapy; Z92.3 Personal history of irradiation; Z93.1 Gastrostomy status